=== PATIENT | male | born 1960 | race Caucasian/White ===

== ENCOUNTER → 2017-07-31 | Outpatient (CLI) | payer OTHER ==
--- NOTE | 2017-07-31 15:23 | US ---
EXAMINATION TYPE: US carotid duplex BILAT DATE OF EXAM: 07/31/2017 COMPARISON: US carotid November 11, 2010 CLINICAL HISTORY: R42 Dizziness. Pt having dizziness EXAM MEASUREMENTS: RIGHT: Peak Systolic Velocity (PSV) cm/sec ----- Right CCA: 88.6 ----- Right ICA: 89.7 ----- Right ECA: 112.1 ICA/CCA ratio: 1.0 RIGHT: End Diastole cm/sec ----- Right CCA: 22.6 ----- Right ICA: 22.6 ----- Right ECA: 12.4 LEFT: Peak Systolic Velocity (PSV) cm/sec ----- Left CCA: 86.9 ----- Left ICA: 87.5 ----- Left ECA: 109.5 ICA/CCA ratio: 1.0 LEFT: End Diastole cm/sec ----- Left CCA: 25.0 ----- Left ICA: 38.0 ----- Left ECA: 15.0 VERTEBRALS (direction of flow): Right Vertebral: Antegrade Left Vertebral: Antegrade Rhythm: Normal No significant stenosis seen Grayscale images show no significant focal plaque at carotid bulb level bilaterally. Velocity measure ments and ratios in visualized portion of both internal carotid arteries is within normal limits. Nor mal cephalad directed flow is seen in both vertebral arteries. IMPRESSION: No hemodynamically significant stenosis is seen in either internal carotid artery.
== END | disposition home or self-care (01) ==
LOC: RADUSWWP 14:05
PROVIDERS: ATTEND Psychiatry & Neurology Neurology
DX: R42 Dizziness and giddiness (principal)
CPT/HCPCS: 93880

== ENCOUNTER → 2017-08-28 | Outpatient (CLI) | payer OTHER ==
--- NOTE | 2017-08-28 21:20 | CONS ---
CONSULTATION REASON FOR CONSULTATION: Sleep apnea. PRIMARY CARE PHYSICIAN: Dr. Raygoza. HISTORY OF PRESENT ILLNESS: 57-year-old, morbidly obese, male patient with history of diabetes, hyperlipidemia, bronchial asthma and chronic back pain with degenerative arthritis. This patient has symptoms of insomnia. He has had some difficulty initiating and maintaining sleep. Sometimes takes him more than 1 hour to fall asleep and he wakes up frequently approximately every hour or hour and a half and his sleep is very fragmented. He goes to bed around midnight and gets out of bed around 7:00 am. Amongst factors that contribute to this patient's sleep fragmentation, is nocturia as the patient has to get up multiple times for urination and he is seeing a urologist in that regard. He grinds his teeth. He snores and he states that he quits breathing and he is quite restless and as he feels numbness and tingling and insects crawling on his feet. He sometimes sweats and gets panicky and he feels very anxious and that is another contributing factor for his poor sleep quality. His Mcdonald score is at 12. He has been tried on Ambien which made his restlessness worse and he ended up quitting and he is currently on trazodone 100 mg at bedtime which had no major impact on his sleep quality. For that reason, he is coming in for further advice. PAST MEDICAL HISTORY: Obesity, diabetes, hyperlipidemia, bronchial asthma, acne, chronic back pain and degenerative arthritis. PAST SURGICAL HISTORY: Includes reconstruction surgery of the TMJ due to an overbite and this was done many years back. Surgery for hammer toe on the left foot, right knee arthroscopy, left knee arthroscopy with replacement. DRUG ALLERGIES: Not known. OUTPATIENT MEDICATION LIST: Includes metformin 1 g twice a day, glipizide 10 mg 3 times a day. Zocor 40 mg p.o. daily, atenolol 50 mg p.o. daily, aspirin 81 mg p.o. daily, albuterol HFA on a p.r.n. basis. Symbicort 160/4.5, 2 puffs twice a day. Doxycycline for acne 100 mg twice a day. Clindamycin gel, vitamin D3 2000 units daily. Omeprazole 20 daily, hydrocodone 7.5/325 as needed. Trazodone 100 mg p.o. daily. SOCIAL HISTORY: The patient is a nonsmoker. No history of alcohol. No history of IV drugs. FAMILY HISTORY: Negative for sleep apnea. REVIEW OF SYSTEMS: 12-point review of system was done. Positive findings are mentioned above in the history of present illness. PHYSICAL EXAMINATION: BP is 120/83, pulse 100, respirations 16, temperature 98.0, saturation 94% on room air. Weight is 319, height is 6'3", neck size is 19 inches, BMI 38.8. GENERAL APPEARANCE: Obese, calm, comfortable. Head is atraumatic, normocephalic. Neck is short, there was significant crowding of posterior pharynx. There is no goiter or neck masses. LUNGS: Clear to auscultation. HEART: Sounds regular rate and rhythm. Normal S1, S2. No S3, S4. No murmurs. ABDOMEN: Obese, soft, nontender. No organomegaly. No direct tenderness, rebound or guarding. EXTREMITIES: Trace edema. There is no cyanosis or clubbing. IMPRESSION: 1. Chronic insomnia with multiple comorbidities affecting sleep quality including anxiety, nocturia/bladder hyperactivity, in addition to possible peripheral neuropathy and restless legs syndrome. Obstructive sleep apnea is definitely concentration knowing that the patient snores and has the typical anatomic features of obstructive sleep apnea with Mallampati class 4. Morbid obesity with a BMI of 38.8. He needs further investigation. 2. Diabetes. 3. Hyperlipidemia. 4. Bronchial asthma. 5. Chronic back pain. PLAN: 1. Proceed with a screening polysomnogram. 2. Weight loss. 3. Tight control of cardiovascular risk factors. 4. We will continue to follow. 5. Will proceed with a sleep study and offer treatment accordingly. MMODL / IJN: [id number] /
== END | disposition home or self-care (01) ==
LOC: SLEEP 15:35
PROVIDERS: ATTEND Internal Medicine Critical Care Medicine
DX: G47.33 Obstructive sleep apnea (adult) (pediatric) (principal); F51.04 Psychophysiologic insomnia; E66.01 Morbid (severe) obesity due to excess calories; Z68.38 Body mass index [BMI] 38.0-38.9, adult; E11.9 Type 2 diabetes mellitus without complications; E78.5 Hyperlipidemia, unspecified; M54.9 Dorsalgia, unspecified; G89.29 Other chronic pain; J45.909 Unspecified asthma, uncomplicated; Z79.899 Other long term (current) drug therapy; Z79.82 Long term (current) use of aspirin; Z79.891 Long term (current) use of opiate analgesic
CPT/HCPCS: 99211

== ENCOUNTER → 2018-01-23 | Outpatient (CLI) | payer OTHER ==
[2018-01-23 12:16] LABS: Blood Urea Nitrogen 12 mg/dL (9-20)
--- NOTE | 2018-01-23 13:16 | CT ---
EXAMINATION TYPE: CT brain w con DATE OF EXAM: 01/23/2018 COMPARISON: CT brain November 10, 2010 HISTORY: Headache, dizziness CT DLP: 1185.70 mGycm Automated exposure control for dose reduction was used. CONTRAST: CT scan of the head is performed with IV Contrast, patient injected with 100 ml mL of Isovue 300. FINDINGS: There is no abnormal enhancing mass or midline shift identified. The ventricles and sulci are within normal limits in size for patient's age not significantly changed from prior. The globes are intact bilaterally. There is mucosal thickening with near complete opacification of bilateral ethmoid sinuses. There is n ear complete opacification of left maxillary sinus. There is mild mucosal thickening in the right max illary sinus. There is mild mucosal thickening and small caliber left sphenoid sinus. There is mild m ucosal thickening with dependent opacification left frontal sinus. IMPRESSION: No suspicious enhancing intraparenchymal mass. Acute on chronic paranasal sinus disease is felt prese nt as detailed above.
--- NOTE | 2018-01-23 13:21 | CT ---
EXAMINATION TYPE: CT soft tissue neck w con DATE OF EXAM: 01/23/2018 12:57 PM COMPARISON: NONE HISTORY: Headache, dizziness per order. Neck pain for over 10 years with double vision also per patie nt. CT DLP: 746.70 mGycm Automated exposure control for dose reduction was used. CONTRAST: CT scan of the neck is performed following with IV Contrast, patient injected with 100 ml mL of Isovu e 300. Axial images are obtained, coronal and sagittal reformatted images are reviewed. FINDINGS: Airway: There is 4 mm nodule axial image 1 anterior right upper lobe. There is 13 x 3 mm scarlike [place] posterior lateral right upper lobe axial image 16. Parotid/submandibular glands: Submandibular glands are symmetric and lower limits of normal in size. . Carotid/Vascular Structures: There is left-sided arch with aberrant right brachiocephalic artery r unning posterior to esophagus which is normal variant. There are some prominent but subcentimeter adj acent anterior superior mediastinal lymph nodes, for reference lymph node measures 14 x 8 mm axial im age 14. Dominant right vertebral artery is seen. Osseous Structures: There is some spurring from the C4 vertebra. Other: There are some scattered prominent but subcentimeter lymph nodes throughout the neck bilateral ly. There is no suspicious greater than 1 cm neck adenopathy. There is near complete opacification of left maxillary sinus. There is complete opacification of visu alized portion of left ethmoid sinuses with some expansion felt present. No bony destruction is seen. Please refer to same day CT brain study. IMPRESSION: No suspicious finding is seen to account for patient's symptoms.
== END | disposition home or self-care (01) ==
LOC: RADCTMAIN 11:17
PROVIDERS: ATTEND Psychiatry & Neurology Neurology
DX: R51 Headache (principal); M54.2 Cervicalgia
CPT/HCPCS: 82565; 84520; 70491; 70460; 36415; Q9967 ×2

== ENCOUNTER → 2020-09-14 | Outpatient (CLI) | payer OTHER ==
--- NOTE | 2020-09-14 16:26 | MR ---
EXAMINATION TYPE: MR knee RT wo con DATE OF EXAM: 09/14/2020 COMPARISON: Outside right knee x-ray 1 week ago. HISTORY: Right knee pain, pain with locking and swelling for 10 years per patient. TECHNIQUE: Multiplanar, multisequence imaging of the right knee is performed without IV contrast. FINDINGS: MEDIAL MENISCUS: Oblique and horizontal increased signal posterior horn medial meniscus extends into the central body consistent with full-thickness tear this extends into the deeper portion of the ante rior horn. Abnormal meniscus noted coronal image 21 LATERAL MENISCUS: Anterior and posterior horns are intact without tear. CRUCIATE LIGAMENTS: The anterior and posterior cruciate ligaments are intact and unremarkable. COLLATERAL LIGAMENTS: The medial collateral ligament and lateral collateral ligament complex are inta ct and unremarkable. EXTENSOR MECHANISM: Visualized quadriceps and patellar tendons are intact. EFFUSION: Small suprapatellar joint effusion. POPLITEAL CYST: No popliteal/bryan cyst. TRICOMPARTMENT SPACES: [id number] tricompartment joint space loss with mild spurring. CARTILAGE: Some chondromalacia patella with thinning of articular cartilage along the inferior clinical informatics physician ior patellar pole. There is thinning of articular cartilage medial tibial femoral compartment. BONE MARROW SIGNAL: Small focus of osseous contusion and/or abnormal bone marrow signal intensity wit h diminished T1 and increased T2 signal involving the medial aspect of the medial tibial plateau. OTHER: No additional significant abnormality is appreciated. IMPRESSION: 1. Complex full-thickness tear medial meniscus through the central body and posterior horn with some extension into the deeper aspect of the anterior. 2. Fairly moderate tricompartment degenerative changes greatest patellofemoral and medial tibiofemora l compartments. Small area of abnormal bone marrow edema medial aspect of the medial tibial plateau n oted.
== END | disposition home or self-care (01) ==
LOC: RADMRIMAIN 15:22
PROVIDERS: ATTEND Orthopaedic Surgery
DX: S83.241A Other tear of medial meniscus, current injury, right knee, initial encounter (principal); M17.11 Unilateral primary osteoarthritis, right knee

== ENCOUNTER → 2020-10-21 | Outpatient (CLI) | payer OTHER ==
[2020-10-21 19:13] LABS: Basophils # (A) 0.08 X 10*3/uL (0.00-0.10); Basophils % (A) 0.9 %; Eosinophils % (A) 7.5 %; HCT 45.1 % (39.6-50.0); HGB 14.6 g/dL (13.0-17.0); Lymphocytes # (A) 2.61 X 10*3/uL (0.90-5.00); MCH 28.9 pg (27.0-32.0); MCHC 32.4 g/dL (32.0-37.0); MCV 89.3 fL (80.0-97.0); Mean Platelet Volume 10.1 fL (9.5-12.2); Monocytes # (A) 0.71 X 10*3/uL (0.20-1.00); Monocytes % (A) 7.6 %; Neutrophils # (A) 5.19 X 10*3/uL (1.80-7.70); Neutrophils % (A) 55.6 %; Platelet Count 260 X 10*3/uL (140-440); RBC 5.05 X 10*6/uL (4.40-5.60); RDW 12.3 % (11.5-14.5); WBC 9.33 X 10*3/uL (4.50-10.00)
[2020-10-21 22:51] LABS: Anion Gap 12.8 mmol/L (4.00-12.00); Carbon Dioxide 25.2 mmol/L (21.6-31.8); Potassium 4.5 mmol/L (3.5-5.5)
== END | disposition home or self-care (01) ==
LOC: LABWHC1 12:55
PROVIDERS: ATTEND Orthopaedic Surgery
DX: Z01.812 Encounter for preprocedural laboratory examination (principal); M23.91 Unspecified internal derangement of right knee
CPT/HCPCS: 36415; 80051; 85025; 93005

== ENCOUNTER 2020-10-28 12:07 | Day surgery (SDC) | payer OTHER ==
[2020-10-25 14:49] VITALS: BMI 40.1
--- NOTE | 2020-10-27 16:52 | HP ---
HISTORY AND PHYSICAL DATE OF SURGERY: 10/28/2020 Karl Ramos is a 60-year-old gentleman seen with progressive right knee pain. We discussed options for treatment. He elected to proceed with arthroscopy. Consent was obtained. PAST MEDICAL HISTORY: Hypertension, insulin-dependent diabetes, hyperlipidemia. PAST SURGICAL HISTORY: Foot surgery, total knee arthroplasty, right knee arthroscopy. DAILY MEDICATIONS: Albuterol, atenolol, glipizide, Lantus insulin, metformin, omeprazole, simvastatin. ALLERGIES: LYRICA. SOCIAL HISTORY: He denies current tobacco use. PHYSICAL EVALUATION OF THE RIGHT KNEE: Range of motion is zero to 130. Mild effusion. Tenderness, medial joint line. Positive medial Marla's. Ligaments are stable. Hip rotation is without pain. Distal neurovascular exam is intact. RADIOGRAPHS: Radiographs of the right knee revealed mild osteoarthritis. Right knee MRI revealed a complex medial meniscal tear. IMPRESSION: 1. Internal derangement of right knee with medial meniscal tear. 2. Hyperlipidemia. 3. Hypertension. 4. Pnn-mzocmjh-uayukkoxs diabetes. PLAN: Right knee arthroscopy with partial meniscectomy and debridement. MMODL / IJN: [id number] /
[~2020-10-28 12:07] MED LIST: DEXAMETHASONE SOD PHOSPHATE 4 MG/ML 1 ML VIAL IV ONE; HYDROmorphone 0.5 MG/0.5 ML SYRINGE IVP PRN; LACTATED RINGERS 1,000 ML IV SCH; ONDANSETRON 4 MG/2 ML VIAL IVP ONE; ceFAZolin 3 GM in SODIUM CHLORIDE 0.9% 100 ML IVPB PRN
[2020-10-28 12:39] LABS: Glucose,Whole Blood 122 mg/dL (75-99)
[2020-10-28] MEDS ORDERED: MIDAZOLAM 2 MG/2 ML VIAL IV ONE (13:12)
[2020-10-28] MEDS ORDERED: BUPIVACAINE (PF) 0.25% 30 ML VIAL INTRAARTIC ONE (14:39)
[2020-10-28] MEDS ORDERED: LACTATED RINGERS 1,000 ML IV ONE (14:56)
--- NOTE | 2020-10-28 15:14 | P.OP ---
Date of Procedure: 10/28/20 Preoperative Diagnosis: Internal derangement right knee Postoperative Diagnosis: 1. Medial meniscal tear right knee 2. Reactive synovitis medial, lateral and suprapatellar compartments right knee Procedure(s) Performed: 1. Arthroscopic partial medial meniscectomy right knee 2. Arthroscopic partial synovectomy medial, lateral and suprapatellar compartments right knee Anesthesia: LBA, local Surgeon: Rosalio Macdonald Estimated Blood Loss (ml): 7 Pathology: none sent Condition: stable Disposition: PACU Indications for Procedure: 60-year-old gentleman seen with progressive right knee pain. After treatment options were discussed, he elected to proceed with arthroscopy. Operative Findings: See description of procedure Description of Procedure: Patient was taken to the operative suite. Patient underwent a general an esthetic by the department of anesthesia. Patient was given preoperative antibiotics. The right lower extremity was placed in a well-padded arthroscopic leg siegel. The right leg was prepped and draped in the normal sterile orthopedic fashion. A lateral parapatellar and suprapatellar incision was made. Trochars were inserted. Arthroscopy was initiated. Suprapatellar pouch revealed diffuse thick reactive synovitis. The patellofemoral joint appeared to articulate congruently. There was grade 1 chondromalacia of the patellofemoral joint with no osteochondral tears present. The scope was guided into the medial gutter. No loose bodies or plica were identified The scope was then guided into the medial compartment. A medial parapatellar incision was made. Trocar inserted followed by probe. There was a complex tear involving the posterior horn medial meniscus. There were grade 1/2 chondromalacia changes of the medial compartment with no osteochondral tears present. There was thick reactive synovitis anteriorly. I performed a partial medial meniscectomy getting down to stable meniscal tissue. I performed a partial synovectomy decompressing the thick reactive synovitis anteriorly. The residual meniscus was probed and found to be stable. There was good decompression of the synovitis. Scope and probe were then guided into the intercondylar notch. Cruciates were identified, probed and found to be stable. The scope and probe were then guided into lateral compartment. Lateral meniscus was probed and was found to be stable. There was some thick reactive synovitis anteriorly. There was no significant chondromalacia present. I introduced a motorized shaver and performed a partial synovectomy. The shaver was removed. There was good decompression of the synov itis. The scope was in guided back into the suprapatellar compartment. I introduced a motorized shaver into the suprapatellar compartment. I debrided some piecemeal fragments of meniscus I encountered. I performed a partial synovectomy decompressing the reactive synovitis. The shaver was removed. There was good decompression of the synovitis. I took one more look around the entire knee, no residual debris. Instruments were now removed from the joint. The joint was infiltrated with .25% Marcaine. Steri-Strips were applied to the portal sites. Sterile dressings were applied. The patient was placed into a MARIO hose. No tourniquet was utilized. The patient was awakened, transferred to a bed and taken to recovery stable satisfactory condition.
[2020-10-28] MEDS ORDERED: PROPOFOL 10 MG/ML 20 ML VIAL IV ONE (15:23)
[2020-10-28] MEDS ORDERED: MIDAZOLAM 2 MG/2 ML VIAL ONE (15:23)
[2020-10-28] MEDS ORDERED: fentaNYL (PF) 50 MCG/ML 2 ML AMP ONE (15:23)
[2020-10-28] MEDS ORDERED: LIDOCAINE 1% INJ 10MG/ML (20 ML MDV) ONE (15:23)
[2020-10-28] MEDS ORDERED: HYDROmorphone (PF) 1 MG/ML ONE (15:23)
[2020-10-28] MEDS ORDERED: SUCCINYLCHOLINE CHLORIDE VIAL 200 MG/10 ML VIAL IV ONE (15:23)
[2020-10-28 15:27] VITALS: TEMP 97.3
[2020-10-28 15:33] VITALS: RESP 16
[2020-10-28 15:43] LABS: Glucose,Whole Blood 97 mg/dL (75-99)
[2020-10-28 16:15] VITALS: BP 154/87; PULSE 78
== END 2020-10-28 17:11 | disposition home or self-care (01) ==
LOC: OR 12:07
PROVIDERS: ATTEND Orthopaedic Surgery
DX: M23.221 Derangement of posterior horn of medial meniscus due to old tear or injury, right knee (principal); M94.261 Chondromalacia, right knee; M65.861 Other synovitis and tenosynovitis, right lower leg; I10 Essential (primary) hypertension; E78.5 Hyperlipidemia, unspecified; G47.33 Obstructive sleep apnea (adult) (pediatric); J44.9 Chronic obstructive pulmonary disease, unspecified; E11.9 Type 2 diabetes mellitus without complications; G43.909 Migraine, unspecified, not intractable, without status migrainosus; K21.9 Gastro-esophageal reflux disease without esophagitis; E66.9 Obesity, unspecified; Z99.89 Dependence on other enabling machines and devices; Z79.4 Long term (current) use of insulin; Z79.899 Other long term (current) drug therapy; Z98.890 Other specified postprocedural states; Z88.8 Allergy status to other drugs, medicaments and biological substances
CPT/HCPCS: 29881; J2250; J0330; J1100; J0690; J2405; J2001; J3010; J1170; J2704

== ENCOUNTER → 2021-04-20 | Outpatient (CLI) | payer OTHER ==
[2021-04-20 14:01] LABS: Basophils # (A) 0.1 k/uL (0-0.2); Basophils % (A) 1 %; Eosinophils # (A) 0.6 k/uL (0-0.7); Eosinophils % (A) 8 %; HCT 44.3 % (39.0-53.0); HGB 15.3 gm/dL (13.0-17.5); Lymphocytes % (A) 28 %; MCH 31.2 pg (25.0-35.0); MCHC 34.6 g/dL (31.0-37.0); MCV 90.4 fL (80.0-100.0); Mean Platelet Volume 7.5; Monocytes # (A) 0.4 k/uL (0-1.0); Monocytes % (A) 5 %; Neutrophils # (A) 3.8 k/uL (1.3-7.7); Neutrophils % (A) 55 %; Platelet Count 209 k/uL (150-450); RDW 12.9 % (11.5-15.5); WBC 6.9 k/uL (3.8-10.6)
[2021-04-20 14:10] LABS: Prothrombin Time 10.3 sec (9.0-12.0)
[2021-04-20 14:18] LABS: Potassium 5.2 mmol/L (3.5-5.1)
== END | disposition home or self-care (01) ==
LOC: LABPAT 11:49
PROVIDERS: ATTEND Orthopaedic Surgery
DX: Z01.812 Encounter for preprocedural laboratory examination (principal); M17.11 Unilateral primary osteoarthritis, right knee
CPT/HCPCS: 36415; 80051; 85025; 85610; 87070

== ENCOUNTER 2021-05-09 05:37 | Observation (INO) | payer OTHER ==
[2021-04-21 15:07] VITALS: BMI 39.5
--- NOTE | 2021-05-08 13:36 | HP ---
HISTORY AND PHYSICAL HISTORY: Karl Ramos is a 60-year-old gentleman seen with symptomatic right knee osteoarthritis. We discussed options for treatment. He elected to proceed with right total knee arthroplasty. Consent regarding the procedure was obtained. PAST MEDICAL HISTORY: Hypertension, hyperlipidemia, insulin-dependent diabetes. PAST SURGICAL HISTORY: Left total knee arthroplasty, right knee arthroscopy, left foot surgery. MEDICATIONS: Albuterol, atenolol, glipizide, Lantus insulin, metformin, [place], simvastatin. ALLERGIES: Lyrica. SOCIAL HISTORY: Denies tobacco use. PHYSICAL EXAMINATION: Evaluation of right knee range of motion 0-115. Mild effusion. Tenderness medial joint line. Crepitus medial patellofemoral compartments on range of motion. Pain with patellofemoral compression. Ligaments stable. Hip rotation without pain. Distal neurovascular exam is intact. RADIOGRAPHS: Right knee radiographs reveal severe osteoarthritic changes. IMPRESSION: 1. Right knee osteoarthritis. 2. Hypertension. 3. Hyperlipidemia. 4. Insulin-dependent diabetes. PLAN: Right total knee arthroplasty. MMODL / GLENISN: [id number] /
[~2021-05-09 05:37] MED LIST changes: +ACETAMINOPHEN TAB 500 MG TAB PO PRN; -DEXAMETHASONE SOD PHOSPHATE 4 MG/ML 1 ML VIAL IV ONE; -HYDROmorphone 0.5 MG/0.5 ML SYRINGE IVP PRN; -LACTATED RINGERS 1,000 ML IV SCH; +MELOXICAM 7.5 MG TAB PO PRN; -ONDANSETRON 4 MG/2 ML VIAL IVP ONE; +ROPIVACAINE/EPI/CLONIDINE/KET 50 ML SYRINGE MISCELLANE PRN; +TRANEXAMIC ACID 1,000 MG in SODIUM CHLORIDE 0.9% 100 ML IVPB PRN
[2021-05-09] MEDS ORDERED: LIDOCAINE 1% (10MG/ML) FOR IV START INTRADERMA PRN (05:49)
[2021-05-09] MEDS: LACTATED RINGERS 1,000 ML IV SCH ×4 (06:37→20:39)
[2021-05-09 06:38] LABS: Glucose,Whole Blood 103 mg/dL (75-99)
[2021-05-09] MEDS: ONDANSETRON 4 MG/2 ML VIAL IVP ONE ×2 (06:55→20:39)
[2021-05-09] MEDS ORDERED: MIDAZOLAM 2 MG/2 ML VIAL IVP ONE ×2 (07:02→07:18)
[2021-05-09] MEDS ORDERED: diphenhydrAMINE 50 MG/ML 1 ML VIAL ONE (07:28)
[2021-05-09] MEDS ORDERED: PROPOFOL 10 MG/ML 20 ML VIAL IV ONE (07:28)
[2021-05-09] MEDS ORDERED: MIDAZOLAM 2 MG/2 ML VIAL ONE (07:28)
[2021-05-09] MEDS ORDERED: SODIUM CHLORIDE 0.9% (PF) 10 ML VIAL ONE (07:28)
[2021-05-09] MEDS ORDERED: ROPIVACAINE 5 MG/ML 30 ML VIAL ONE (07:28)
[2021-05-09] MEDS ORDERED: SODIUM CHLORIDE 0.9% 100 ML BAG ONE (07:28)
[2021-05-09] MEDS ORDERED: TRANEXAMIC ACID 1,000 MG/10 ML VIAL ONE (07:28)
[2021-05-09] MEDS ORDERED: PHENYLEPHRINE-0.9% NACL SYG 1,000 MCG/10 ML SYRINGE ONE (07:28)
[2021-05-09] MEDS ORDERED: fentaNYL (PF) 50 MCG/ML 2 ML AMP ONE (07:28)
[2021-05-09] MEDS ORDERED: KETAMINE 10 MG/ML 20 ML VIAL ONE (07:28)
[2021-05-09] MEDS ORDERED: ceFAZolin 1,000 MG in SODIUM CHLORIDE 0.9% 1,000 ML IRRIGATION ONE (07:34)
[2021-05-09] MEDS ORDERED: ACETAMINOPHEN TAB 325 MG TAB PO PRN (08:27)
[2021-05-09] MEDS ORDERED: ONDANSETRON 4 MG/2 ML VIAL IVP PRN (08:27)
[2021-05-09] MEDS ORDERED: MAGNESIUM HYDROXIDE 2,400 MG/10 ML CUP PO PRN (08:27)
[2021-05-09] MEDS ORDERED: HYDROcodone/APAP 7.5-325MG 1 EACH TAB PO PRN (08:27)
[2021-05-09] MEDS ORDERED: HYDROmorphone 0.5 MG/0.5 ML SYRINGE IVP PRN (08:27)
[2021-05-09] MEDS ORDERED: NALOXONE 0.4 MG/ML 1 ML VIAL IV PRN ×2 (08:27→09:15)
[2021-05-09] MEDS ORDERED: LACTATED RINGERS 1,000 ML IV ONE ×2 (08:31→14:26)
--- NOTE | 2021-05-09 09:15 | P.OP ---
Date of Procedure: 05/09/21 Preoperative Diagnosis: Right knee osteoarthritis Postoperative Diagnosis: Right knee osteoarthritis Procedure(s) Performed: Right total knee arthroplasty Implants: 1. Depuy attune size 8 right cruciate retaining cemented femur 2. Depuy attune size 8 fixed bearing cemented tibial baseplate 3. Depuy attune size 8 fixed bearing cruciate retaining 8 millimeter polyethylene tibial insert 4. Depuy attune 41 mm all polyethylene cemented patellla Anesthesia: regional (Adductor canal, Ipack block), spinal Surgeon: Rosalio Macdonald Director Of Research And Development #1: Reese Mercado Estimated Blood Loss (ml): 45 Pathology: other (Bone) Condition: stable Disposition: PACU Indications for Procedure: 60-year-old gentleman seen with symptomatic right knee osteoarthritis. After treatment options were discussed, he elected to proceed with total knee ar throplasty. Operative Findings: See description of procedure Description of Procedure: Patient was taken to the operative suite after having an adductor canal catheter placed by the department of anesthesia as well as and Ipack block for postoperative pain management. Patient underwent a spinal anesthetic by the department of anesthesia. Patient was given preoperative IV intake antibiotics and TXA. A well-padded tourniquet was placed about the right lower extremity. The lower extremity was then prepped and draped in the normal sterile orthopedic fashion. The extremity was elevated, a tourniquet was insufflated to 300. A standard anterior incision was made sharply through skin. Dissection was taken down through the subcutaneous soft tissues down to the extensor mechanism. A medial arthrotomy was performed, patella was everted and knee was flexed. There was advanced osteoarthritis noted. I introduced my distal intramedullary f emoral drill. I then introduced the distal femoral cutting jig. Logan WATSON secured the cutting jig with 2 pins. I held retractors in position while Reese WATSON performed the distal femoral resection through the guide area we now removed her distal femoral cutting guide. We now placed our 4-in-1 femoral cutting block and positioned and it was secured with 2 pins by Reese WATSON while I held the block in position. The distal femoral finishing was now completed. A proximal tibial cutting guide was positioned. I held the guide in the appropriate position with both hands while Reese WATSON inserted stabilizing pins into the guide. Proximal tibial cut was made. We now placed a trial femoral component into position, along with an appropriate size tibial tray and insert. We now took the knee through range of motion and had full extension good flexion and good overall soft tissue balance noted. The patella was everted and stabilized with 2 towel clips held by Reese WATSON while I performed a flush with patellar quad tendon utilizing a fresh sawblade. We templated the patella, appropriate drill holes were made. An appropriate trial patella was positioned, knee was taken through full range of motion with the patella tracking very nicely. The trial patella was removed. Drill holes were made through the femoral component. All trial components were removed after m arking off the appropriate rotation of the tibia. Retractors were now positioned along the proximal tibia. An appropriate keel punch was made with the appropriate size tibial guide by myself while Reese WATSON assisted by holding retractors. At this point appropriate size implants were chosen and opened. The joint was irrigated copiously with pulse lavage mechanical irrigation. The posterior capsule was infiltrated with local analgesic. The wound was irrigated with pulse lavage mechanical irrigation. We mixed antibiotic methylmethacrylate. We placed the knee into flexion. We placed multiple retractors assisted by Reese WATSON to expose the proximal tibia. Once the methyl methacrylate was ready, the tibial component was cemented into place removing any excess methylmethacrylate form by both myself and Reese WATSON. The femoral component was cemented into place removing the removing any excess methylmethacrylate performed by both myself and Reese WATSON. We then inserted the appropriate size polyethylene tibial insert. We made sure that it was locked into position. We took the knee into full extension, and then back in a flexion making sure we had removed any excess methylmethacrylate. The patellar component was then cemented down and secured with clamp. Excess methylmethacrylate removed. We kept the knee in full extension, patellar clamp in position until methylmethacrylate had hardened. Once it had hardened the patellar clamp was removed. The knee was taken through full range of motion. The patella tracked nicely. There was good soft tissue balancing. The tourniquet was now released. Additional hemostasis was achieved via electrocautery. A second gram of TXA was given. The wound again was irrigated with pulse lavage mechanical irrigation. The superficial soft tissues were infiltrated local analgesic. The extensor mechanism was repaired with Vicryl. We checked the repair with range of motion and it was stable. The subcutaneous soft tissues were repaired with Vicryl in layers. The skin was approximated with pernio/Dermabond. Sterile dressings were applied followed by loose web roll and Rafiq bandage. The patient was transferred to a bed, and taken to recovery in stable and satisfactory condition. Reese WATSON assisted with this complex procedure.
[2021-05-09] MEDS ORDERED: ROPIVACAINE 0.2%-NS ON-Q PUMP 1,090 MG, EMPTY PAIN BALL 1 EACH MISCELLANE PRN (09:47)
--- NOTE | 2021-05-09 10:05 | XR ---
EXAMINATION TYPE: XR knee limited RT DATE OF EXAM: 05/09/2021 COMPARISON: NONE HISTORY: 60-year-old male evaluation for postoperative abnormality in alignment TECHNIQUE: 2 views FINDINGS: Images show placement of right total knee arthroplasty. Both distal femoral and proximal ti bial components of the prosthesis appear well seated without periprosthetic fracture. Alignment gross ly anatomic. Anterior soft tissue swelling with soft tissue air as well as intra-articular air and quentin int effusion compatible with recent operation. IMPRESSION: Uncomplicated postoperative appearance right total knee arthroplasty.
[2021-05-09 10:10] LABS: Glucose,Whole Blood 70 mg/dL (75-99)
[2021-05-09] MEDS: HYDROmorphone 0.5 MG/0.5 ML SYRINGE IVP PRN ×4 (10:23→12:00)
--- NOTE | 2021-05-09 13:51 | P.ANPRN ---
Procedure Note - Anesthesia - Nerve Block Performed Right Adductor Canal Time Out Performed: Yes (:) Date of Procedure: 05/09/21 Procedure Start Time: Procedure Stop Time: Location of Patient: PreOp Indication: Acute Post-Operative Pain, Requested by Surgeon (Dr Manning) Sedation Type: Sedate with meaningful contact maintained Preparation: Sterile Prep, Sterile Dressing Position: Supine Catheter: Indwelling Needle Types: Pajunk Needle Gauge: 21 Ultrasound used to visualize needle placement: Yes Ultrasound used to observe medication spread: Yes Injectate: 0.5% Ropivacaine (see comment for volume) (15cc) Blood Aspirated: No Pain Paresthesia on Injection Noted: No Resistance on Injection: Normal Image Stored and Saved: Yes Events: Uneventful and Well Tolerated
--- NOTE | 2021-05-09 13:52 | P.ANPRN ---
Procedure Note - Anesthesia - Nerve Block Performed Right iPack Time Out Performed: Yes Date of Procedure: 05/09/21 Procedure Start Time: 07:14 Procedure Stop Time: :25 Location of Patient: PreOp Indication: Acute Post-Operative Pain, Requested by Surgeon (Dr Macdonald) Sedation Type: Sedate with meaningful contact maintained Preparation: Sterile Prep Position: Supine Catheter: None Needle Types: Pajunk Needle Gauge: 21 Ultrasound used to visualize needle placement: Yes Ultrasound used to observe medication spread: Yes Injectate: 0.5% Ropivacaine (see comment for volume) (15cc + 5cc PFNormal saline) Blood Aspirated: No Pain Paresthesia on Injection Noted: No Resistance on Injection: Normal Image Stored and Saved: Yes Events: Uneventful and Well Tolerated
[2021-05-09] MEDS: HYDROcodone/APAP 5-325MG 1 EACH TAB PO PRN ×2 (14:20→20:37)
[2021-05-09] MEDS ORDERED: PANTOPRAZOLE 40 MG TABLET PO PRN (15:25)
[2021-05-09] MEDS ORDERED: ALBUTEROL NEBULIZED 2.5 MG/3 ML INHALATION PRN (15:25)
[2021-05-09] MEDS ORDERED: ceFAZolin 3 GM in SODIUM CHLORIDE 0.9% 100 ML IVPB SCH (16:00)
[2021-05-09] MEDS: ceFAZolin 3 GM in SODIUM CHLORIDE 0.9% 100 ML IVPB SCH (16:29)
[2021-05-09] MEDS: GABAPENTIN 400 MG CAP PO SCH ×2 (16:29→21:29)
[2021-05-09] MEDS: HYDROmorphone 1 MG/ML 1 ML SYRINGE IVP PRN ×3 (16:30→22:43)
[2021-05-09 16:55] LABS: Glucose,Whole Blood 134 mg/dL (75-99)
--- NOTE | 2021-05-09 17:04 | P.CONS ---
History of Present Illness - Reason for Consult Consult date: 05/09/21 - History of Present Illness History of Presenting Illness: Patient is a 60-year-old male with a past medical history hypertension, hyperlipidemia, sinus tachycardia, COPD not on home oxygen dependent, insulin- dependent diabetes mellitus type 2, positional vertigo, diabetic neuropathy, and obstructive sleep apnea CPAP dependent nightly. Patient currently admitted under orthopedic surgery team status post right total knee arthroplasty. Surgical procedure completed by Dr. Macdonald. We have been consulted for continued medical management. Upon physical examination, patient reports postsurgical pain is currently controlled. He does report a feeling of tightness otherwise reports controlled with pain medicine previously administered. Patient reports tolerating oral intake and denies having any postoperative nausea or vomiting. Patient denies any history of DVTs or PEs. He denies having any headache, lightheadedness, dizziness, chest pain, palpitations, shortness of breath, abdominal pain, nausea, vomiting, or experiencing any numbness/tingling sensations. Review of systems: Pertinent positives and negatives as discussed in HPI, a complete review of systems was performed and all other systems are negative. Physical exam: Vital signs reviewed and stable. General: Nontoxic, no distress and appears stated age. Derm: Skin warm and dry, normal coloration for ethnicity. Head: Atraumatic, normocephalic and symmetric. Eyes: EOMs intact, no lid lag, and anicteric sclera Mouth: no lip lesions, mucus membranes moist Cardiovascular: regular rate and rhythm with normal S1S2, no murmur, positive posterior tibial pulses bilaterally, and cap refill < 2 seconds. Lungs: Respirations even, regular, and unlabored on room air. Lungs CTA bilaterally, no rhonchi, no rales, no wheezing, and no accessory muscle usage. Abdominal: soft, nontender to palpation, no guarding, no appreciable organomegaly Ext: ROM intact. No gross muscle atrophy, no edema, no contractures. Post operative dressings/splint to right lower extremity. Ice pack in place. Neuro: Speech clear, face symmetrical and CN II-XII grossly intact with no noted focal neuro deficits Psych: Alert and oriented to person, place, time, and situation. Appropriate and pleasant affect. Assessment and Plan of Care: Status post right total knee arthroplasty -Surgical procedure completed by Dr. Macdonald -Pain management, weightbearing, PT/OT, and DVT prophylaxis per primary admitting orthopedic team. Hypertension, -Monitor vital signs and continue daily medication regimen. Hyperlipidemia, Continue daily medication regimen with atorvastatin 20 mg nightly. Sinus tachycardia, Continue daily medication management with atenolol. COPD not on home oxygen dependent -Oxygenation to be provided as needed to maintain SpO2 equal to or greater than 92%, patient currently on room air. -Encourage use of incentive spirometry. Insulin-dependent diabetes mellitus type 2 -Glycemic protocol with NovoLog sliding scale and Levemir 36 units nightly Diabetic neuropathy -Continue daily medication regimen with Neurontin 1200 mg 3 times daily Obstructive sleep apnea CPAP dependent nightly -Continue home CPAP nightly Thank you for allowing us to participate in the care of this pleasant patient. Do not hesitate to contact us with questions. Someone can be reached from the [facility] hospitalist group all hours of the day at [phone] or via [employer]. Past Medical History Past Medical History: Asthma, COPD, Diabetes Mellitus, GERD/Reflux, Hyperlipidemia, Osteoarthritis (OA), Sleep Apnea/CPAP/BIPAP Additional Past Medical History / Comment(s): hx migraines, states hx sinus tachycardia., back pain, vertigo., pain right knee, Uses C-Pap machine. History of Any Multi-Drug Resistant Organisms: None Reported Past Surgical History: Joint Replacement, Orthopedic Surgery Additional Past Surgical History / Comment(s): ARTHROSCOPY MAE KNEES APPROX 4 TIMES EACH., HAMMER TOE LEFT SMALL TOE, TMJ RECONSTRUCTION, TOTAL LEFT KNEE X2. Past Anesthesia/Blood Transfusion Reactions: Family History of Problems w/ Anesthesia, Motion Sickness Additional Past Anesthesia/Blood Transfusion Reaction / Comm: SISTER HAS DIFFICULTY WAKING UP. Past Psychological History: Anxiety Smoking Status: Vaper Past Alcohol Use History: Rare Additional Past Alcohol Use History / Comment(s): SMOKED 1-2 YEARS IN . ( IN HIS 20'S) Past Drug Use History: None Reported Additional Drug Use History / Comment(s): vapes THC - Past Family History Mother Family Medical History: Cancer Additional Family Medical History / Comment(s): COLON CANCER WITH METS. Sister(s) Family Medical History: Cancer Additional Family Medical History / Comment(s): BREAST CANCER Medications and Allergies Home Medications Medication Instructions Recorded Confirmed Type Albuterol Inhaler (Mhu) [Ventolin 1 - 2 puff INHALATION Q6HR PRN 12/28/14 05/09/21 History Inhaler] Aspirin 81 mg PO DAILY 12/28/14 05/09/21 History Insulin Glargine [Lantus] 60 unit SQ QAM 12/28/14 05/09/21 History glipiZIDE [Glucotrol] 10 mg PO DAILY 12/28/14 05/09/21 History metFORMIN HCL [Glucophage] 1,000 mg PO BID 12/28/14 05/09/21 History Simvastatin [Zocor] 40 mg PO HS 09/07/16 05/09/21 History atenoloL [Tenormin] 50 mg PO DAILY 09/07/16 05/09/21 History traZODone HCL 150 mg PO HS 09/07/16 05/09/21 History Gabapentin [Gralise] 1,200 mg PO TID 09/24/19 05/09/21 History Omeprazole 20 mg PO DAILY PRN 09/24/19 05/09/21 History Cholecalciferol [Vitamin D3 (25 50 mcg PO DAILY 10/25/20 05/09/21 History Mcg = 1000 Iu)] Clindamycin Gel [Clindamycin 1 applic TOPICAL BID PRN 10/25/20 05/09/21 History Phosphate 1% Gel] Doxycycline [Vibramycin] 100 mg PO BID 10/25/20 05/09/21 History Insulin Glargine [Lantus] 36 unit SQ HS 10/25/20 05/09/21 History Budesonide-Formot 160-4.5 Mcg 2 puff INHALATION BID 04/21/21 05/09/21 History [Symbicort 160-4.5 Mcg Inhaler] HYDROcodone/APAP 7.5-325MG [[place] 1 tab PO TID PRN 04/21/21 04/21/21 History 7.5-325] Naproxen Sodium [Aleve] 220 mg PO DIRECTED PRN 04/21/21 05/09/21 History Cetirizine HCl [Zyrtec] 10 mg PO DAILY 05/02/21 05/09/21 History Dulaglutide [Trulicity] 0.75 mg SQ MO 05/02/21 05/09/21 History Allergies Allergy/AdvReac Type Severity Reaction Status Date / Time pregabalin [From Lyrica] Allergy Unknown Depression. Verified 05/09/21 06:11 Physical Exam Vitals: Vital Signs Temp Pulse Pulse Resp BP BP Pulse Ox 05/09/21 13:30 63 18 105/73 96 05/09/21 12:30 61 16 122/77 97 05/09/21 12:00 62 16 107/68 97 05/09/21 11:30 61 16 115/70 100 05/09/21 11:00 60 16 114/70 100 05/09/21 10:30 67 17 113/68 100 05/09/21 10:15 67 16 106/67 99 05/09/21 10:00 65 16 109/65 98 05/09/21 09:45 68 16 106/67 97 05/09/21 09:28 96.9 F L 73 14 99/61 95 05/09/21 07:25 73 18 141/77 97 05/09/21 06:20 98.3 F 77 20 146/78 97 Intake and Output 05/09/21 05/09/21 05/09/21 06:59 14:59 22:59 Intake Total 2576 Output Total 45 Balance 2531 Intake: IV 2576 Output: Estimated Blood Loss 45 Other: Weight 145.5 kg 145.5 kg Results CBC & Chem 7: 05/09/21 06:39 Labs: Abnormal Lab Results - Last 24 Hours (Table) 05/09/21 05/09/21 Range/Units 06:34 10:08 POC Glucose (mg/dL) 103 H 70 L (75-99) mg/dL
[2021-05-09] MEDS: INSULIN ASPART (NovoLOG) 100 UNIT/ML VIAL SQ SCH (17:32)
[2021-05-09] MEDS: SYMBICORT 160-4.5 MCG INHALER INHALATION SCH (20:01)
[2021-05-09] MEDS ORDERED: SENNOSIDES-DOCUSATE SODIUM 1 EACH TAB PO SCH (21:00)
[2021-05-09] MEDS ORDERED: traZODone HCL 50 MG TAB PO SCH (21:00)
[2021-05-09] MEDS ORDERED: ATORVASTATIN 20 MG TAB PO SCH (21:00)
[2021-05-09] MEDS ORDERED: INSULIN DETEMIR (LEVEMIR) 100 UNIT/ML SYR SQ SCH (21:00)
[2021-05-09 21:15] LABS: Glucose,Whole Blood 146 mg/dL (75-99)
[2021-05-10] MEDS: ceFAZolin 3 GM in SODIUM CHLORIDE 0.9% 100 ML IVPB SCH (00:10)
[2021-05-10] MEDS: HYDROmorphone 1 MG/ML 1 ML SYRINGE IVP PRN (03:07)
[2021-05-10] MEDS: HYDROcodone/APAP 5-325MG 1 EACH TAB PO PRN ×2 (06:05→12:10)
[2021-05-10 07:00] LABS: Glucose,Whole Blood 146 mg/dL (75-99)
[2021-05-10] MEDS: GABAPENTIN 400 MG CAP PO SCH (08:30)
[2021-05-10] MEDS: INSULIN ASPART (NovoLOG) 100 UNIT/ML VIAL SQ SCH ×2 (08:31→12:10)
[2021-05-10] MEDS ORDERED: INSULIN DETEMIR (LEVEMIR) 100 UNIT/ML SYR SQ SCH (09:00)
[2021-05-10] MEDS ORDERED: MELOXICAM 7.5 MG TAB PO SCH (09:00)
[2021-05-10] MEDS ORDERED: LORATADINE 10 MG TAB PO SCH (09:00)
[2021-05-10] MEDS ORDERED: CHOLECALCIFEROL 25 MCG (1000 IU) TABLET PO SCH (09:00)
[2021-05-10] MEDS ORDERED: atenoloL 50 MG TAB PO SCH (09:00)
[2021-05-10] MEDS ORDERED: ENOXAPARIN 40 MG/0.4 ML SYRINGE SQ SCH (09:00)
[2021-05-10] MEDS: SYMBICORT 160-4.5 MCG INHALER INHALATION SCH (09:02)
[2021-05-10 09:27] LABS: Basophils # (A) 0.07 X 10*3/uL (0.00-0.10); Basophils % (A) 0.9 %; Eosinophils # (A) 0.57 X 10*3/uL (0.04-0.35); Eosinophils % (A) 7.1 %; HCT 41.8 % (39.6-50.0); HGB 13.3 g/dL (13.0-17.0); Lymphocytes # (A) 1.74 X 10*3/uL (0.90-5.00); Lymphocytes % (A) 21.8 %; MCH 29.2 pg (27.0-32.0); MCHC 31.8 g/dL (32.0-37.0); MCV 91.7 fL (80.0-97.0); Mean Platelet Volume 9.6 fL (9.5-12.2); Monocytes # (A) 0.99 X 10*3/uL (0.20-1.00); Monocytes % (A) 12.4 %; Neutrophils # (A) 4.61 X 10*3/uL (1.80-7.70); Neutrophils % (A) 57.5 %; Platelet Count 220 X 10*3/uL (140-440); RBC 4.56 X 10*6/uL (4.40-5.60)
[2021-05-10 10:13] LABS: African American GFR (CKD) 94.4 (60.0-200.0); Anion Gap 8.7 mmol/L (4.00-12.00); Calcium 8.5 mg/dL (8.7-10.3); Carbon Dioxide 29.3 mmol/L (21.6-31.8); Magnesium 1.6 mg/dL (1.5-2.4); Non-African American GFR(CKD) 81.4 (60.0-200.0); Potassium 4.4 mmol/L (3.5-5.5)
--- NOTE | 2021-05-10 10:52 | P.PN ---
Subjective Progress Note Date: 05/10/21 Principal diagnosis: Status post right total knee arthroplasty Patient evaluated at bedside, resting in his hospital chair. He is doing rather well at this time. He did not get up yesterday with therapy. He was able to get up and ambulate today. The little difficulty with getting to the bathroom, but no not lightheadedness or headaches. Denies any chest pain or shortness of breath. Objective - Vital Signs Vital signs: Vital Signs Temp 98.4 F 05/10/21 01:05 Pulse 77 05/10/21 08:32 Resp 15 05/10/21 08:32 BP 115/66 05/10/21 01:05 Pulse Ox 94 L 05/10/21 01:05 Intake & Output 05/09/21 05/10/21 05/10/21 18:59 06:59 18:59 Intake Total 2676 Output Total 45 Balance 2631 Weight 145.5 kg Intake: IV 2576 Intake, IV Titration 100 Amount ceFAZolin 3 gm In Sodium 100 Chloride 0.9% 100 ml @ 200 mls/hr IVPB Q8HR OZZIE Rx#:[id number] Output: Estimated Blood Loss 45 Other: Voiding Method Urinal Toilet # Voids 2 - Exam Right lower extremity: Incision is clean, dry, and intact. The foam dressing is in good condition. There is minimal soft tissue swelling and ecchymosis surrounding the medial and lateral aspects of the incision. Calf is soft, no tenderness with palpation. Plantar flexion, dorsiflexion, EHL, FHL are intact. Sensory exam to light touch throughout the extremity is intact, dorsal pedis pulses 2+. - Labs CBC & Chem 7: 05/10/21 06:19 05/10/21 06:19 Labs: Abnormal Lab Results - Last 24 Hours (Table) 05/09/21 05/09/21 05/10/21 Range/Units 16:53 21:13 06:19 MCHC 31.8 L (32.0-37.0) g/dL Eosinophils # 0.57 H (0.04-0.35) X 10*3/uL Sodium (135-145) mmol/L Chloride (96-109) mmol/L Glucose (70-110) mg/dL POC Glucose (mg/dL) 134 H 146 H (75-99) mg/dL Calcium (8.7-10.3) mg/dL 05/10/21 05/10/21 Range/Units 06:19 06:58 MCHC (32.0-37.0) g/dL Eosinophils # (0.04-0.35) X 10*3/uL Sodium 133 L (135-145) mmol/L Chloride 95 L (96-109) mmol/L Glucose 143 H (70-110) mg/dL POC Glucose (mg/dL) 146 H (75-99) mg/dL Calcium 8.5 L (8.7-10.3) mg/dL Assessment and Plan Assessment: Status post right total knee arthroplasty Plan: Pain control, patient does state [place] 7.5 mg/325 mg for chronic back pain. We'll increase to 10 mg/325 mg for 2 weeks and advised patient to call his pain management doctor regarding this change in medication GI and DVT prophylaxis, aspirin 81 mg twice a day for 1 month Wound care instructions were discussed Encourage incentive spirometer Medical recommendations Discharge planning: Plan for discharge home today Time with Patient: Less than 30
[2021-05-10 11:02] VITALS: RESP 18; TEMP 98.2
[2021-05-10 11:36] LABS: Glucose,Whole Blood 182 mg/dL (75-99)
--- NOTE | 2021-05-10 12:17 | P.PN ---
Subjective Progress Note Date: 05/10/21 No new complaints today. Pt doing well with leg exercises. Has no cp, palps, dyspnea, fevers, chills. Had a fall today, but did not hit his head. Objective - Vital Signs Vital signs: Vital Signs Temp 98.2 F 05/10/21 09:00 Pulse 105 H 05/10/21 09:00 Resp 18 05/10/21 09:00 BP 111/68 05/10/21 09:00 Pulse Ox 95 05/10/21 09:00 Intake & Output 05/09/21 05/10/21 05/10/21 18:59 06:59 18:59 Intake Total 2676 Output Total 45 Balance 2631 Weight 145.5 kg Intake: IV 2576 Intake, IV Titration 100 Amount ceFAZolin 3 gm In Sodium 100 Chloride 0.9% 100 ml @ 200 mls/hr IVPB Q8HR OZZIE Rx#:[id number] Output: Estimated Blood Loss 45 Other: Voiding Method Urinal Toilet # Voids 2 - Exam Gen: awake, alert HEENT: normocephalic, atraumatic, good hearing acuity, moist mucous membranes Resp: good air exchange, breathing comfortably with no accessory muscle use CVS: good distal perfusion x 4, GI: soft, NTTP, ND : no SPT, no CVAT, taylor catheter not present MSK: no pitting edema, no clubbing Neuro: non-focal, moving all extremities Psych: cooperative, euthymic mood - Labs CBC & Chem 7: 05/10/21 06:19 05/10/21 06:19 Labs: Abnormal Lab Results - Last 24 Hours (Table) 05/09/21 05/09/21 05/10/21 Range/Units 16:53 21:13 06:19 MCHC 31.8 L (32.0-37.0) g/dL Eosinophils # 0.57 H (0.04-0.35) X 10*3/uL Sodium (135-145) mmol/L Chloride (96-109) mmol/L Glucose (70-110) mg/dL POC Glucose (mg/dL) 134 H 146 H (75-99) mg/dL Calcium (8.7-10.3) mg/dL 05/10/21 05/10/21 05/10/21 Range/Units 06:19 06:58 11:35 MCHC (32.0-37.0) g/dL Eosinophils # (0.04-0.35) X 10*3/uL Sodium 133 L (135-145) mmol/L Chloride 95 L (96-109) mmol/L Glucose 143 H (70-110) mg/dL POC Glucose (mg/dL) 146 H 182 H (75-99) mg/dL Calcium 8.5 L (8.7-10.3) mg/dL Assessment and Plan Assessment: Status post right total knee arthroplasty -Surgical procedure completed by Dr. Macdonald -Pain management, weightbearing, PT/OT, and DVT prophylaxis per primary admitting orthopedic team. Hypertension, -Monitor vital signs and continue daily medication regimen. Hyperlipidemia, Continue daily medication regimen with atorvastatin 20 mg nightly. Sinus tachycardia, Continue daily medication management with atenolol. COPD not on home oxygen dependent -Oxygenation to be provided as needed to maintain SpO2 equal to or greater than 92%, patient currently on room air. -Encourage use of incentive spirometry. Insulin-dependent diabetes mellitus type 2 -Glycemic protocol with NovoLog sliding scale and Levemir 36 units nightly Diabetic neuropathy -Continue daily medication regimen with Neurontin 1200 mg 3 times daily Obstructive sleep apnea CPAP dependent nightly -Continue home CPAP nightly Thank you for allowing us to participate in the care of this pleasant patient. Do not hesitate to contact us with questions. Someone can be reached from the [facility] hospitalist group all hours of the day at [phone] or via [employer].
[2021-05-10 15:24] VITALS: BP 107/67; PULSE 87
== END 2021-05-10 15:50 | disposition home health service (06) ==
LOC: OR 05:37 → 4SSUR 13:58 → OR 23:43
PROVIDERS: ADMIT Orthopaedic Surgery; ATTEND Orthopaedic Surgery
DX: M17.11 Unilateral primary osteoarthritis, right knee (principal); E11.40 Type 2 diabetes mellitus with diabetic neuropathy, unspecified; I10 Essential (primary) hypertension; E78.5 Hyperlipidemia, unspecified; J44.9 Chronic obstructive pulmonary disease, unspecified; G47.33 Obstructive sleep apnea (adult) (pediatric); K21.9 Gastro-esophageal reflux disease without esophagitis; R00.0 Tachycardia, unspecified; G43.909 Migraine, unspecified, not intractable, without status migrainosus; F41.9 Anxiety disorder, unspecified; G89.29 Other chronic pain; M54.9 Dorsalgia, unspecified; W19.XXXA Unspecified fall, initial encounter; Z79.82 Long term (current) use of aspirin; Z79.4 Long term (current) use of insulin; Z79.51 Long term (current) use of inhaled steroids; Z79.899 Other long term (current) drug therapy; Z88.8 Allergy status to other drugs, medicaments and biological substances; Z96.652 Presence of left artificial knee joint; Z98.890 Other specified postprocedural states; Z80.0 Family history of malignant neoplasm of digestive organs; Z80.3 Family history of malignant neoplasm of breast; Z84.89 Family history of other specified conditions
CPT/HCPCS: 94640 ×2; 97116; 97161; 64999; 64448; 76942; 80048; 83735; 84132; 85025; 88300; 73560; 27447; G0378; C1776; C1713 ×2; J2250; J1200; J0690 ×3; J2405; J1650; J3010; J1170 ×3; J2795 ×2; J2370; J2704

== ENCOUNTER 2021-10-14 13:39 | Emergency (ER) | payer OTHER ==
[2021-10-14 13:53] VITALS: TEMP 97.1
[2021-10-14] MEDS ORDERED: MORPHINE SULFATE 4 MG/ML SYRINGE IVP STA (14:14)
[2021-10-14 14:52] LABS: Appearance,Urine Clear (Clear); Bacteria,Urine Rare /hpf; Bilirubin,Urine Negative (Negative); Blood,Urine Negative (Negative); Color,Urine Yellow; Glucose,Urine (UA) 4+ (Negative); Ketones,Urine Negative (Negative); Leukocyte Esterase,Urine Negative (Negative); Mucus,Urine Rare /hpf; Nitrite,Urine Positive (Negative); Protein,Urine Negative (Negative); RBC,Urine <1 /hpf (0-5); Specific Gravity,Urine 1.041 (1.001-1.035); Urobilinogen,Urine <2.0 mg/dL (<2.0); WBC,Urine 2 /hpf (0-5)
[2021-10-14 14:55] LABS: ALT 25 U/L (4-49); AST 29 U/L (17-59); African American GFR (CKD) >90 (>60 ml/min/1.73 sqM); Albumin 4.8 g/dL (3.5-5.0); Alkaline Phosphatase 73 U/L (38-126); Amylase 55 U/L (30-110); Anion Gap 10 mmol/L; Blood Urea Nitrogen 15 mg/dL (9-20); Calcium 9.7 mg/dL (8.4-10.2); Carbon Dioxide 22 mmol/L (22-30); Chloride 103 mmol/L (98-107); Glucose 91 mg/dL (74-99); Non-African American GFR(CKD) >90 (>60 ml/min/1.73 sqM); Potassium 4.5 mmol/L (3.5-5.1); Sodium 135 mmol/L (137-145); Total Bilirubin 0.9 mg/dL (0.2-1.3); Total Protein 7.6 g/dL (6.3-8.2)
[2021-10-14 14:59] LABS: Basophils # (A) 0.1 k/uL (0-0.2); Basophils % (A) 1 %; Eosinophils # (A) 0.6 k/uL (0-0.7); Eosinophils % (A) 8 %; HCT 47.9 % (39.0-53.0); HGB 15.6 gm/dL (13.0-17.5); Lymphocytes # (A) 2.5 k/uL (1.0-4.8); Lymphocytes % (A) 33 %; MCH 29.6 pg (25.0-35.0); MCHC 32.5 g/dL (31.0-37.0); MCV 90.9 fL (80.0-100.0); Mean Platelet Volume 7.4; Monocytes # (A) 0.4 k/uL (0-1.0); Monocytes % (A) 5 %; Neutrophils # (A) 3.9 k/uL (1.3-7.7); Neutrophils % (A) 51 %; Platelet Count 248 k/uL (150-450); RBC 5.27 m/uL (4.30-5.90); RDW 14.1 % (11.5-15.5); WBC 7.7 k/uL (3.8-10.6)
[2021-10-14 15:08] VITALS: BP 125/79; PULSE 80; RESP 18
[2021-10-14 15:11] LABS: Lipase 85 U/L (23-300)
--- NOTE | 2021-10-14 15:54 | CT ---
EXAMINATION TYPE: CT abdomen pelvis w con DATE OF EXAM: 10/14/2021 COMPARISON: NONE HISTORY: 61-year-old male Mid to lower abdominal pain x 2 1/2 weeks with diarrhea. TECHNIQUE: Contiguous axial scanning of the abdomen and pelvis following administration of 100 ml Iso gus 300 IV contrast. Delayed images through the kidneys and coronal/sagittal reconstructions perform ed. CT DLP: 2382.2 mGycm Automated exposure control for dose reduction was used. FINDINGS: Heart normal size without pericardial effusion. Mild LAD and RCA coronary artery calcifications. Mild aneurysm aortic root at 4.1 cm. Lung bases clear without pleural effusion. Low attenuation of the hepatic parenchyma. Portal venous system is patent. No biliary ductal dilatati on. 1.3 cm stone dependent in the gallbladder. Gallbladder is distended to the upper limits of normal wit hout destiny hydropic change or wall thickening. Adrenal glands, right kidney, spleen, and pancreas within normal limits. Tiny 2 mm nonobstructive left lower pole renal calculus. Mild atherosclerotic calcifications abdominal aorta without aneurysm. Hyperdense flecks seen throughout the jejunum. No dilated small bowel, free fluid, or free air. No me senteric or retroperitoneal lymphadenopathy. Normal appendix. Mild to moderate stool burden. No pericolonic inflammatory change. Bladder urine distended. Prostate gland measures 5.1 cm wide. No abnormal fluid collection in the pel vis. Numerous nonenlarged right external iliac chain lymph nodes measuring up to 7 mm. No pelvic lymp hadenopathy by size criteria. Bones: Moderate degenerative change of the right hip. Cam deformity at the anterior right femoral nec k junction suggests chronic femoral acetabular impingement syndrome. No osseous destructive process. IMPRESSION: 1. A 1.3 CM GALLSTONE. NO ANCILLARY FINDINGS OF ACUTE CHOLECYSTITIS. 2. TINY 2 MM NONOBSTRUCTIVE LEFT RENAL CALCULUS. 3. HYPERDENSE FLECKS SEEN THROUGHOUT THE JEJUNUM LIKELY INGESTED MATERIAL SUCH PEPTO-BISMOL, ANTAC IDS, MULTIVITAMINS, IRON SUPPLEMENTS, ETC. CORRELATE TO EXCLUDE OTHER HEAVY METAL INGESTION. 4. HEPATIC STEATOSIS. MILD TO MODERATE STOOL BURDEN. PROSTATOMEGALY AT 5.1 CM WIDE. 5. 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 6. MILD RIGHT HIP OA SECONDARY TO CHRONIC CAM-TYPE TOM.
--- NOTE | 2021-10-14 16:01 | ED ---
Abdominal Pain HPI - General Chief Complaint: Abdominal Pain Stated Complaint: abd & back pain Time Seen by Provider: 10/14/21 13:56 Source: patient Mode of arrival: ambulatory - History of Present Illness Initial Comments: Patient is a 61-year-old male with a past medical history of diabetes mellitus, hyperlipidemia, and GERD who presents to the emergency department with a chief complaint of lower abdominal pain 2.5 weeks. He has never experienced these symptoms before. Patient states he noticed pain a few days after his Ozempic dose was increased. Patient describes the pain as a constant aching with radiation to the bilateral flanks and bilateral lower back, 7/10 in severity. Patient states the pain is worse with movement. No mechanism of injury. He denies fever, chills, shortness of breath, chest pain, nausea, and vomiting. He does note that he has recently experienced diarrhea after being prescribed Augmentin for sinus infection but the diarrhea resolved 2 days ago. He denies history of kidney stones and abdominal surgery. - Related Data Home Medications Medication Instructions Recorded Confirmed Aspirin 81 mg PO DAILY 12/28/14 09/14/21 Insulin Glargine [Lantus] 60 unit SQ QAM 12/28/14 09/14/21 metFORMIN HCL [Glucophage] 1,000 mg PO BID 12/28/14 09/14/21 atenoloL [Tenormin] 50 mg PO DAILY 09/07/16 09/14/21 Gabapentin [Gralise] 1,200 mg PO TID 09/24/19 09/14/21 Omeprazole 20 mg PO DAILY PRN 09/24/19 09/14/21 Cholecalciferol [Vitamin D3 (25 50 mcg PO DAILY 10/25/20 09/14/21 Mcg = 1000 Iu)] Clindamycin Gel [Clindamycin 1 applic TOPICAL BID PRN 10/25/20 09/14/21 Phosphate 1% Gel] Empagliflozin [Jardiance] 25 mg PO DAILY 09/14/21 09/14/21 Semaglutide [Ozempic] 1 mg SQ MO 09/14/21 09/14/21 Albuterol Sulfate [Albuterol 2 puff PO RT-Q6H PRN 10/14/21 10/14/21 Sulfate Hfa] Carboxymethylcellulose Sodium 1 drop BOTH EYES QID 10/14/21 10/14/21 [Refresh Tears] Doxycycline Hyclate 100 mg PO BID 10/14/21 10/14/21 Fluticasone Propion/Salmeterol 1 puff PO RT-BID PRN 10/14/21 10/14/21 [Fluticasone-Salmeterol 250-50] HYDROcodone/APAP 7.5-325MG [[place] 1 tab PO TID PRN 10/14/21 10/14/21 7.5-325] Sildenafil Citrate 100 mg PO DAILY PRN 10/14/21 10/14/21 Simvastatin [Zocor] 40 mg PO HS 10/14/21 10/14/21 traZODone HCL 150 mg PO HS 10/14/21 10/14/21 Previous Rx's Medication Instructions Recorded Sulfamethox-Tmp 800-160Mg [Bactrim 1 each PO Q12HR #10 tab 10/14/21 Ds] Tamsulosin [Flomax] 0.4 mg PO DAILY #10 cap 10/14/21 Allergies Allergy/AdvReac Type Severity Reaction Status Date / Time pregabalin [From Lyrica] Allergy Unknown Depression. Verified 10/14/21 16:40 Review of Systems ROS Statement: Those systems with pertinent positive or pertinent negative responses have been documented in the HPI. ROS Other: All systems not noted in ROS Statement are negative. Past Medical History Past Medical History: Asthma, COPD, Diabetes Mellitus, GERD/Reflux, Hyperlipidemia Additional Past Medical History / Comment(s): HX OF MIGRAINES, HX OF SVT., FREQ UENT URINATION. History of Any Multi-Drug Resistant Organisms: None Reported Past Surgical History: Joint Replacement, Orthopedic Surgery Additional Past Surgical History / Comment(s): ARTHROSCOPY MAE KNEES APPROX 4 TIMES EACH., HAMMER TOE LEFT SMALL TOE, TMJ RECONSTRUCTION, TOTAL LEFT KNEE X2. RT TKA Past Anesthesia/Blood Transfusion Reactions: Family History of Problems w/ Anesthesia, Motion Sickness Additional Past Anesthesia/Blood Transfusion Reaction / Comment(s): SISTER HAS DIFFICULTY WAKING UP. Past Psychological History: Anxiety Smoking Status: Former smoker, Vaper Past Alcohol Use History: None Reported Past Drug Use History: None Reported - Past Family History Mother Family Medical History: Cancer Additional Family Medical History / Comment(s): COLON CANCER WITH METS. Sister(s) Family Medical History: Cancer Additional Family Medical History / Comment(s): BREAST CANCER Course Vital Signs 10/14/21 10/14/21 13:47 15:04 Temperature 97.1 F L Pulse Rate 82 80 Respiratory 16 18 Rate Blood Pressure 129/82 125/79 O2 Sat by Pulse 97 97 Oximetry Medical Decision Making - Medical Decision Making This is a 61-year-old male with a past medical history of diabetes mellitus, hyperlipidemia, and GERD, who presents with lower abdominal pain x 2.5 weeks. CBC and CMP are unremarkable. Urinalysis reveals positive nitrates. CT of the abdomen/pelvis reveals a tiny 2 mm nonobstructive left renal calculus. It also showed a 1.3 cm gallstone with no acute cholecystitis, hyperdense flecks through the jejunum, hepatic steatosis, mild aneurysmal aortic root, and mild right hip osteoarthritis. Results discussed with patient. Patient notes that he took Pepto-Bismol this morning, which correlates with CT findings. Patient discharged with Flomax and Bactrim. Discussed with patient that the stone is small and likely to pass. Patient instructed to drink a lot of fluids and to take medication as prescribed. I did refer him to a urologist if symptoms do not improve in 7-10 days. I also referred him to vascular surgery for follow-up regarding the mild aneurysmal aortic root found on CT. Return parameters discussed. - Lab Data Result diagrams: 10/14/21 14:23 10/14/21 14:23 Lab Results 10/14/21 10/14/21 10/14/21 Range/Units 14:23 14:23 14:23 WBC 7.7 (3.8-10.6) k/uL RBC 5.27 (4.30-5.90) m/uL Hgb 15.6 (13.0-17.5) gm/dL Hct 47.9 (39.0-53.0) % MCV 90.9 (80.0-100.0) fL MCH 29.6 (25.0-35.0) pg MCHC 32.5 (31.0-37.0) g/dL RDW 14.1 (11.5-15.5) % Plt Count 248 (150-450) k/uL MPV 7.4 Neutrophils % 51 % Lymphocytes % 33 % Monocytes % 5 % Eosinophils % 8 % Basophils % 1 % Neutrophils # 3.9 (1.3-7.7) k/uL Lymphocytes # 2.5 (1.0-4.8) k/uL Monocytes # 0.4 (0-1.0) k/uL Eosinophils # 0.6 (0-0.7) k/uL Basophils # 0.1 (0-0.2) k/uL Sodium 135 L (137-145) mmol/L Potassium 4.5 (3.5-5.1) mmol/L Chloride 103 (98-107) mmol/L Carbon Dioxide 22 (22-30) mmol/L Anion Gap 10 mmol/L BUN 15 (9-20) mg/dL Creatinine 0.84 (0.66-1.25) mg/dL Est GFR (CKD-EPI)AfAm >90 (>60 ml/min/1.73 sqM) Est GFR (CKD-EPI)NonAf >90 (>60 ml/min/1.73 sqM) Glucose 91 (74-99) mg/dL Calcium 9.7 (8.4-10.2) mg/dL Total Bilirubin 0.9 (0.2-1.3) mg/dL AST 29 (17-59) U/L ALT 25 (4-49) U/L Alkaline Phosphatase 73 (38-126) U/L Total Protein 7.6 (6.3-8.2) g/dL Albumin 4.8 (3.5-5.0) g/dL Amylase 55 (30-110) U/L Lipase 85 (23-300) U/L Urine Color Yellow Urine Appearance Clear (Clear) Urine pH 5.0 (5.0-8.0) Ur Specific [place] 1.041 H (1.001-1.035) Urine Protein Negative (Negative) Urine Glucose (UA) 4+ H (Negative) Urine Ketones Negative (Negative) Urine Blood Negative (Negative) Urine Nitrite Positive (Negative) Urine Bilirubin Negative (Negative) Urine Urobilinogen <2.0 (<2.0) mg/dL Ur Leukocyte Esterase Negative (Negative) Urine RBC <1 (0-5) /hpf Urine WBC 2 (0-5) /hpf Urine Bacteria Rare H (None) /hpf Urine Mucus Rare H (None) /hpf Disposition Clinical Impression: Nephrolithiasis Disposition: HOME SELF-CARE Condition: Good Instructions (If sedation given, give patient instructions): Kidney Stones (ED) Additional Instructions: Take medication as prescribed. Increase fluid intake in effort to pass stone. Schedule an appointment with urologist Dr. Mtz if symptoms do not improve in 7-10 days. Schedule at appointment with vascular surgeon specialist Dr. Velazquez at earliest available appointment. Return to the emergency department if you experience any new, concerning, or worsening symptoms. Prescriptions: Sulfamethox-Tmp 800-160Mg [Bactrim Ds] 1 each PO Q12HR #10 tab Tamsulosin [Flomax] 0.4 mg PO DAILY #10 cap Is patient prescribed a controlled substance at d/c from ED?: No Referrals: [facility],Clinic [Primary Care Provider] - 1-2 days Stepan Trinidad DO [Doctor of Osteopathic Medicine] - 1-2 days Main Mtz MD [STAFF PHYSICIAN] - 1-2 days Decision Time: 16:55
== END 2021-10-14 17:43 | disposition home or self-care (01) ==
LOC: EC 13:39
DX: N20.0 Calculus of kidney (principal); J44.9 Chronic obstructive pulmonary disease, unspecified; E11.9 Type 2 diabetes mellitus without complications; K21.9 Gastro-esophageal reflux disease without esophagitis; E78.5 Hyperlipidemia, unspecified; G43.909 Migraine, unspecified, not intractable, without status migrainosus; Z87.891 Personal history of nicotine dependence; Z79.899 Other long term (current) drug therapy; Z88.8 Allergy status to other drugs, medicaments and biological substances; Z79.51 Long term (current) use of inhaled steroids; Z79.82 Long term (current) use of aspirin; Z79.4 Long term (current) use of insulin; Z79.84 Long term (current) use of oral hypoglycemic drugs
CPT/HCPCS: 36415; 80053; 82150; 83690; 85025; 81001; 74177; 99284; 96374; J2270; Q9967

== ENCOUNTER → 2021-12-26 | Outpatient (CLI) | payer OTHER ==
--- NOTE | 2021-12-27 07:55 | ECHOF ---
Referral Reason:I71.4 MEASUREMENTS -------- HEIGHT: 188.0 cm WEIGHT: 124.7 kg BP: RVIDd: 2.3 cm (< 3.3) IVSd: 1.0 cm (0.6 - 1.1) LVIDd: 5.1 cm (3.9 - 5.3) LVPWd: 0.8 cm (0.6 - 1.1) IVSs: 1.5 cm LVIDs: 3.1 cm LVPWs: 1.1 cm LAESV Index (A-L): 20.81 ml/m Ao Diam: 4.1 cm (2.0 - 3.7) AV Cusp: 2.0 cm (1.5 - 2.6) MV EXCURSION: 15.965 mm (> 18.000) MV EF SLOPE: 31 mm/s (70 - 150) EPSS: 0.7 cm MV E Unruly: 0.37 m/s MV DecT: 360 ms MV A Unruly: 0.79 m/s MV E/A Ratio: 0.47 RAP: 5.00 mmHg RVSP: 19.35 mmHg FINDINGS -------- Sinus rhythm. This was a technically good study. LV size, wall thickness and systolic function are normal, with an EF greater than 55%. The left anival tricular size is normal. The right ventricle is normal in size. Normal LA size by volume 22+/-6 ml/m2. The right atrial size is normal. Mild mitral regurgitation is present. Mild tricuspid regurgitation present. Right ventricular systolic pressure is normal at < 35 mmHg. There is no pulmonic regurgitation present. Aortic Root is dilated and measure 4.1cm. There is no pericardial effusion. CONCLUSIONS -------- 1. LV size, wall thickness and systolic function are normal, with an EF greater than 55%. 2. The left ventricular size is normal. 3. The right ventricle is normal in size. 4. Normal LA size by volume 22+/-6 ml/m2. 5. The right atrial size is normal. 6. Mild mitral regurgitation is present. 7. Mild tricuspid regurgitation present. 8. Aortic Root is dilated and measure 4.1cm. 9. There is no pericardial effusion. MAGNETIC DOCTOR: Gavi Sharma RDCS
== END | disposition home or self-care (01) ==
LOC: RADECHMAIN 13:02
DX: I71.4 Abdominal aortic aneurysm, without rupture (principal)
CPT/HCPCS: 93306

== ENCOUNTER → 2022-06-14 | Outpatient (CLI) | payer OTHER ==
--- NOTE | 2022-06-14 10:21 | CT ---
EXAMINATION TYPE: CT chest wo con DATE OF EXAM: 06/14/2022 COMPARISON: 12/22/2021 HISTORY: Abnormal finding of lung field, enlarged vessel in heart per patient CT DLP: 577 mGycm, Automated exposure control for dose reduction was used. CONTRAST: Performed injected with 0 mL of Isovue 300. TECHNIQUE: Axial images were obtained at 5 mm thick sections. Reconstructed images are reviewed on [employer] computer in the coronal plane. FINDINGS: Portion of the thyroid visualized is normal. There is a 0.5 cm density at the peripheral posterior lateral right apex. This appears more focal demetrice n comparison study. Close monitoring is recommended. There is a 0.4 cm nodule in the anterolateral right upper lung field. Series 4 image 19. This may be enlarging from comparison. Subtle density may be within the major fissure on the right, series 4 image 23. No enlarged mediastinal or hilar nodes are evident. The ascending aorta diameter at the level of the main pulmonary artery is 4.0 cm. The main pulmonary artery diameter at the bifurcation is 2.5 cm. M ild coronary artery calcification is present. Limited CT sections are obtained through the upper abdomen. There is a gallstone present. IMPRESSIONS: 1. Enlarging nodules within the right upper lung field discussed above. Neoplasm should be considered . Other etiologies remain within the differential. 2. Ascending thoracic aortic aneurysm 4.0 cm. 3. Cholelithiasis
== END | disposition home or self-care (01) ==
LOC: RADCTMAIN 09:49
DX: R91.8 Other nonspecific abnormal finding of lung field (principal)
CPT/HCPCS: 71250

== ENCOUNTER → 2022-08-18 | Outpatient (CLI) | payer OTHER ==
--- NOTE | 2022-08-18 13:46 | PE ---
EXAMINATION TYPE: PET CT fusion skull to thigh DATE OF EXAM: 08/18/2022 COMPARISON: CT abdomen and pelvis October 14, 2021 HISTORY: Solitary pulmonary nodule. TECHNIQUE: Following the intravenous administration of 11.28 mCi of F-18 FDG, whole body images are performed from the skull base to the midthigh. Images are reviewed on the computer in the coronal, a xial, and sagittal planes. Reconstructed rotating images are created on independent workstation and reviewed on the computer. A localization and attenuation correction CT is performed in conjunction with the PET scan. Blood glucose level was 122. SCAN: Initial Scan FINDINGS: SKULL BASE AND NECK: No areas of abnormal hypermetabolic uptake. CHEST, MEDIASTINUM, AND HILAR REGION: Single peripheral roughly 5 to 6 mm subpleural left lower lobe nodule axial image 119. No abnormal hypermetabolic uptake in the thorax. ABDOMEN AND PELVIS: Normal excretion. Nonspecific bowel uptake somewhat prominent involving the left and sigmoid colon in a contiguous fashion. No adrenal masses. No suspicious hypermetabolic uptake. OSSEOUS STRUCTURES: No abnormal hypermetabolic uptake. OTHER CT: At least moderate three-vessel coronary artery calcification. There is left-sided arch with aberrant right brachiocephalic artery running posterior to the esophagus which is normal variant. Ga llbladder now surgically absent. Mildly enlarged prostate consistent with BPH. Facet arthropathy lowe r lumbar levels. IMPRESSION: No suspicious hypermetabolic nodules. Consider follow-up CT as per Fleischner Society rec ommendations.
== END | disposition home or self-care (01) ==
LOC: RADPETMAIN 09:52
PROVIDERS: ATTEND Internal Medicine Critical Care Medicine
DX: R91.8 Other nonspecific abnormal finding of lung field (principal)
CPT/HCPCS: 78815; A9552

== ENCOUNTER → 2023-01-08 | Outpatient (CLI) | payer OTHER ==
--- NOTE | 2023-01-08 13:57 | CT ---
EXAMINATION TYPE: CT chest wo con DATE OF EXAM: 01/08/2023 COMPARISON: 06/06/2020 HISTORY: hx of aortic valve budge. CT DLP: 437.60 mGycm. Automated Exposure Control for Dose Reduction was Utilized. TECHNIQUE: CT scan of the thorax is performed without IV contrast. FINDINGS: LUNGS: Stable 5 mm right posterior lung nodule. Stable 4 mm anterior right upper lobe nodule Stable 1 mm right upper lobe lateral lung nodule image 17 Stable 2 mm right lower lobe nodule axial 35. Stable 3 mm subpleural nodule superior segment left lower lobe. There is no pleural effusion or pneumothorax seen. The tracheobronchial tree is patent. MEDIASTINUM: Lack of IV contrast is noted to limit evaluation for mediastinal and especially hilar ad enopathy. There are no definitive greater than 1 cm hilar or mediastinal lymph nodes. No cardiomega ly or pericardial effusion is seen. Mild pericardial lipomatosis. Aorta: Aortic valve is not well seen due to noncontrast technique. Maximal dimension of the aorta eddie sures 4.0 cm near the ascending aorta. There are no calcifications in the region of the aortic valve. Mild atherosclerotic changes aorta. There is coronary artery dense calcifications. OTHER: Correlate for previous cholecystectomy. Hypertrophic and degenerative changes of the spine.. IMPRESSION: 1. Aorta demonstrates measures 4.0 cm in greatest dimension with no evidence of aortic valve calcific ation. There is concern for aortic valve abnormality consider correlation with echocardiogram. Border line to mild aneurysmal dilation stable from prior exam. 2. Stable subcentimeter multiple bilateral pulmonary nodules unchanged prior exam. Most likely benign . Recommend follow-up CT as per Fleischner Society recommendations. 3. Dense coronary artery calcifications.
== END | disposition home or self-care (01) ==
LOC: RADCTMAIN 12:57
PROVIDERS: ATTEND Surgery
DX: I71.20 Thoracic aortic aneurysm, without rupture, unspecified (principal); I25.10 Atherosclerotic heart disease of native coronary artery without angina pectoris; R91.8 Other nonspecific abnormal finding of lung field
CPT/HCPCS: 71250

== ENCOUNTER → 2023-03-05 | Outpatient (CLI) | payer OTHER ==
[2023-03-05 12:28] LABS: African American GFR (CKD) >90 (>60 ml/min/1.73 sqM); Blood Urea Nitrogen 11 mg/dL (9-20); Non-African American GFR(CKD) >90 (>60 ml/min/1.73 sqM)
--- NOTE | 2023-03-05 13:06 | CT ---
EXAMINATION TYPE: CT chest w con DATE OF EXAM: 03/05/2023 COMPARISON: 01/08/2023 HISTORY: prior abnormal lung scan CT DLP: 443 mGycm Automated exposure control for dose reduction was used. CONTRAST: CT scan of the chest is performed with IV Contrast, patient injected with 100 mL of Isovue 300. FINDINGS: LUNGS: . There are few stable scattered sub-5 mm pulmonary nodules. No increasing nodules or new nodu les present at this time.There is no pleural effusion or pneumothorax seen. The tracheobronchial geno e is patent. MEDIASTINUM: There are no greater than 1 cm hilar or mediastinal lymph nodes. No pericardial effusi on is seen. Stable ascending thoracic aorta borderline to mild aneurysm at 4 cm. Coronary artery calc ifications redemonstrated The heart is not enlarged. UPPER ABDOMEN: Hepatic steatosis. The gallbladder is surgically absent. OTHER: No additional significant abnormality is seen. IMPRESSION: 1.. There are few stable scattered sub-5 mm pulmonary nodules. No increasing nodules or new nodules p resent at this time.
== END | disposition home or self-care (01) ==
LOC: RADCTMAIN 11:58
PROVIDERS: ATTEND Internal Medicine Critical Care Medicine
DX: R91.8 Other nonspecific abnormal finding of lung field (principal)
CPT/HCPCS: 82565; 84520; 71260; 36415; Q9967

== ENCOUNTER → 2023-09-20 | Outpatient (CLI) | payer OTHER ==
[2023-09-20 10:48] LABS: African American GFR (CKD) >90 (>60 ml/min/1.73 sqM); Blood Urea Nitrogen 16 mg/dL (9-20); Non-African American GFR(CKD) >90 (>60 ml/min/1.73 sqM)
--- NOTE | 2023-09-20 11:49 | CT ---
EXAMINATION TYPE: CT chest w con DATE OF EXAM: 09/20/2023 COMPARISON: Prior chest CT March 05, 2023 and older studies HISTORY: nodule CT DLP: 581 mGycm. Automated Exposure Control for Dose Reduction was Utilized. TECHNIQUE: CT scan of the thorax is performed following with IV Contrast, patient injected with 100 mL of Isovue 300. FINDINGS: LUNGS: Grossly stable 5 mm peripheral left lower lobe nodule axial image 44 unchanged size and appear ance back to December 22, 2021. Greater than two-year stability is consistent with benign lesion. Scatt ered additional micronodules are stable. No new or enlarging greater than 5 mm pulmonary nodules. Sta ble focal scarring peripheral right upper lobe axial image 11. There is no pleural effusion or pneumo thorax seen. The tracheobronchial tree is patent. MEDIASTINUM: There are no greater than 1 cm hilar or mediastinal lymph nodes. No cardiomegaly or pe ricardial effusion is seen. Stable left-sided arch with bovine takeoff of the bilateral common carot id arteries and then aberrant right brachiocephalic artery running posterior to the esophagus, normal variant. Dense coronary artery calcification in the LAD is redemonstrated. Ascending aorta measures up to 4.6 cm in the aortic root on current study coronal image 33 unchanged from most recent study in retrospect. OTHER: Cholecystectomy clips are again seen. IMPRESSION: 1. No new or enlarging greater than 5 mm pulmonary nodules. No significant change in greater than 2 y ears time. 2. Ascending aortic aneurysm up to 4.6 cm in the aortic root. Advise cardiovascular surgical evaluati on if it has not been performed.
== END | disposition home or self-care (01) ==
LOC: RADCTMAIN 10:16
PROVIDERS: ATTEND Internal Medicine Critical Care Medicine
DX: I71.21 Aneurysm of the ascending aorta, without rupture (principal); R91.8 Other nonspecific abnormal finding of lung field
CPT/HCPCS: 82565; 84520; 71260; 36415; Q9967

== ENCOUNTER → 2024-01-18 | Outpatient (CLI) | payer OTHER ==
--- NOTE | 2024-01-18 12:22 | NM ---
EXAMINATION TYPE: NM stress lexiscan cardiolite DATE OF EXAM: 01/18/2024 COMPARISON: NONE HISTORY: Heart palpitations TECHNIQUE: After the intravenous administration of 8.88 mCi Tc 99m Sestamibi - Cardiolite resting SP ECT images acquired . At peak stress 24.7 mCi Tc 99m Sestamibi - Stress images obtained post injection The patient was stressed with 0.4mg Lexiscan. FINDINGS: No fixed defects are evident No reversible stress defects on Spect images There may be some mild dyskinesia at the cardiac apex Ejection fraction is calculated to be 60 %. IMPRESSION: 1. No stress-induced ischemic changes. 2. Mild dyskinesia of the cardiac apex. Ejection fraction remains normal at 60%
--- NOTE | 2024-01-18 13:11 | CA ---
Lexiscan Nuclear Stress Test Report Name: Karl Ramos Exam Date: 01/18/2024 10:38 Exam Location: [facility] Stress Ht (in): 76 Wt (lb): 187 BSA: 2.15 Ordering Phys: Karl Raygoza DO Referring Phys: Blanca Estrada Technologist: Sally Pack RDCS Age: 63 Gender: M : 1960 Procedure CPT: Indications: R00.2 palpitations ICD-10 Codes: Patient History: PALP, DM, CHOL, FAMILY HX. COPD, ASTHMA Medications: METFORMIN, SIMVASTATIN, ATENOLOL, TRAYODONE, ASPIRIN, CLINDAMYCIN, DOXYCYCLINE, CHOLECACILOFEROL, OMEPRAZOLE, OZEMPIC, JAURDIANCE, Meds past 24 hrs: Pretest Chest Pain: STRESS TEST Lexiscan Protocol Exercise Duration (min:sec): 01:[address] Depressions (mm): Angina Score: Martinez Score: Resting HR (bpm): 75 Peak HR (bpm): 110 Resting BP (mmHg): 117 / 68 Peak BP (mmHg): 123 / 65 MPHR: 157 Target HR: 133 % MPHR: 70 METS: 1.0 Total Dose: Peak Dose: Atropine: Double Product: 96370 BP Response: Stress Termination: END OF DOSE Stress Symptoms: ASYMPTOMATIC Stress Summary: ECG ANALYSIS Resting ECG: Stress ECG: CONCLUSIONS Nondiagnostic electrocardiogram stress testing Dr. Darron Quiroga MD (Electronically Signed) Final Date: 18 Jan 2024 13:10
--- NOTE | 2024-01-18 13:11 | CA ---
Transthoracic Echo Report Name: Karl Ramos Age: 63 Gender: M : 1960 Exam Date: 01/18/2024 09:37 Exam Location: [place] Echo Ht (in): 76 Wt (lb): 187 Ordering Physician: Karl Raygoza DO Attending/Referring Phys: Blanca Estrada PAC Recovery Room Rn Ayleen Brar RDCS Procedure CPT: Indications: R00.2 palpitations Cardiac Hx: Technical Quality: Fair Contrast 1: Total Dose (mL): Contrast 2: Total Dose (mL): MEASUREMENTS (Male / Female) Normal Values 2D ECHO LV Diastolic Diameter PLAX 4.7 cm 4.2 - 5.9 / 3.9 - 5.3 cm LV Systolic Diameter PLAX 3.3 cm IVS Diastolic Thickness 1.1 cm 0.6 - 1.0 / 0.6 - 0.9 cm LVPW Diastolic Thickness 0.9 cm 0.6 - 1.0 / 0.6 - 0.9 cm LV Relative Wall Thickness 0.4 RV Internal Dim ED PLAX 2.1 cm Aortic Root Diameter 4.3 cm LV Diastolic Volume MOD BP 80.2 cm??? 67 - 155 / 56 - 104 cm??? LV Systolic Volume MOD BP 39.2 cm??? 22 - 58 / 19 - 49 cm??? LV Ejection Fraction MOD BP 51.1 % >= 55 % LV Diastolic Volume MOD 4C 78.2 cm??? LV Systolic Volume MOD 4C 41.8 cm??? LV Ejection Fraction MOD 4C 46.5 % LV Diastolic Length 4C 7.7 cm LV Systolic Length 4C 6.7 cm LV Diastolic Volume MOD 2C 81.0 cm??? LV Systolic Volume MOD 2C 36.6 cm??? LV Ejection Fraction MOD 2C 54.8 % LV Diastolic Length 2C 7.5 cm LV Systolic Length 2C 6.9 cm M-MODE Aortic Root Diameter MM 4.4 cm LA Systolic Diameter MM 2.4 cm LA Ao Ratio MM 0.6 DOPPLER AV Peak Velocity 103.8 cm/s AV Peak Gradient 4.3 mmHg Mitral E Point Velocity 68.8 cm/s Mitral A Point Velocity 103.9 cm/s Mitral E to A Ratio 0.7 MV Deceleration Time 232.0 ms MV E' Velocity 8.1 cm/s Mitral E to MV E' Ratio 8.5 FINDINGS Left Ventricle Left ventricular ejection fraction is estimated at 45-50%. Mildly decreased left ventricular ejection fraction. Left ventricular cavity size normal. Reduced global left ventricular systolic function. Right Ventricle Mild right ventricular dilatation. Normal right ventricular global systolic function. Unable to estimate the right ventricular systolic pressure. Right Atrium Normal right atrial size. Left Atrium Normal left atrial size. Mitral Valve Structurally normal mitral valve. Trace mitral regurgitation. Aortic Valve Trileaflet aortic valve. Trace aortic regurgitation. No aortic stenosis. Tricuspid Valve Tricuspid valve not well visualized. Trace tricuspid regurgitation. Pulmonic Valve Structurally normal pulmonic valve. No pulmonic stenosis. No pulmonic regurgitation. Pericardium No pericardial or pleural effusion. Aorta Moderately dilated aortic annulus 4.4cm. CONCLUSIONS Mildly impaired LV function was EF between 45-50% Moderately dilated aortic annulus at 4.4 cm Previewed by: Dr. Darron Quiroga MD (Electronically Signed) Final Date: 18 Jan 2024 13:01
== END | disposition home or self-care (01) ==
LOC: RADNMMAIN 08:43
PROVIDERS: ATTEND Family Medicine
DX: R00.2 Palpitations (principal); G24.9 Dystonia, unspecified; I50.1 Left ventricular failure, unspecified
CPT/HCPCS: 93017; 93306; 78452; A9500

== ENCOUNTER → 2024-01-24 | Outpatient (CLI) | payer OTHER ==
--- NOTE | 2024-01-27 21:38 | MR ---
EXAMINATION TYPE: MR lumbar spine wo con DATE OF EXAM: 01/24/2024 COMPARISON: None HISTORY: 63-year-old male M54.59 LOW BACK PAIN TECHNIQUE: Multiplanar, multisequence images of the lumbar spine were acquired without IV contrast. FINDINGS: Vertebral body heights are preserved and alignment is maintained. Mild degenerative disc desiccation and mild disc bulging is present throughout. Conus medullaris is normal. No suspicious bone marrow replacement. No large focal disc herniation or significant spinal canal stenosis. Facet arthropathy mid to lower lumbar spine. There is mild bilateral neural foraminal stenoses throughout, greatest on the left at L3-L4. No high- grade foraminal compromise. No prevertebral or paravertebral soft tissue abnormality seen. IMPRESSION: 1. Mild multilevel degenerative disc disease and mild to moderate facet arthropathy mid to lower lumb ar spine. 2. No vertebral compression collapse or malalignment. 3. No large focal disc herniation or significant spinal canal stenosis. 4. Variable mild neural foraminal stenoses throughout, greatest on the left at L3-L4.
== END | disposition home or self-care (01) ==
LOC: RADMRIMAIN 11:58
PROVIDERS: ATTEND Family Medicine
DX: M51.36 Other intervertebral disc degeneration, lumbar region (principal); M47.816 Spondylosis without myelopathy or radiculopathy, lumbar region; M99.73 Connective tissue and disc stenosis of intervertebral foramina of lumbar region
CPT/HCPCS: 72148

== ENCOUNTER → 2024-12-16 | Outpatient (CLI) | payer OTHER ==
--- NOTE | 2024-12-16 11:31 | CT ---
EXAMINATION TYPE: CT chest wo con DATE OF EXAM: 12/16/2024 11:20 AM COMPARISON: 09/20/2023. CLINICAL INDICATION: Male, 64 years old with history of I71.20 THORACIC AORTIC ANEURYSM; PHH, Thoraci c aortic aneurysm TECHNIQUE: Multiple axial images were obtained through the chest. Sagittal and coronal reformats were created for review. MIP was performed on a separate workstation. Contrast used: mL of (None if empty) Oral contrast used: (None if empty) CT DLP: 422 mGycm, Automated exposure control for dose reduction was used. FINDINGS: LUNGS/ PLEURA: No focal consolidation, pneumothorax or pleural effusion. Stable right upper lobe and other scattered nodular densities.r including right upper lung 4 mm series 4 image 24. Right middle l obe 4 mm series 4 image 44 and lower lobe 3 mm image 42 AIRWAY: Patent and unremarkable. HEART: Size within normal limits. Moderate coronary artery calcifications present. MEDIASTINUM: No gross evidence of adenopathy. VASCULATURE: No aortic aneurysm. Ascending thoracic aorta measures up to 37 mm. The descending thora cic aorta measures up to 25 mm. 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 MUSCULOSKELETAL: No acute osseous abnormalities SOFT TISSUES/LYMPH NODES: Unremarkable. LOWER NECK: No significant findings. UPPER ABDOMEN: Gallbladder surgically absent. IMPRESSION: 1. No evidence for aortic aneurysm. The ascending thoracic aorta is within normal limits measuring 3 7 mm. 2. No new or enlarging pulmonary nodules. Scattered stable sub 6mm pulmonary nodules Moderate cannon ry artery atherosclerosis. Follow up recommendations for incidental pulmonary nodules, if there are any, are per Fleischner?s [employer] [employer] or [employer]. [email or web address].org/[email or web address]-[email or web address]?lang=us [facility], , 12/16/2024 11:28 AM
== END | disposition home or self-care (01) ==
LOC: RADCTMAIN 10:42
PROVIDERS: ATTEND Surgery
DX: I71.20 Thoracic aortic aneurysm, without rupture, unspecified (principal); R91.1 Solitary pulmonary nodule; I25.10 Atherosclerotic heart disease of native coronary artery without angina pectoris
CPT/HCPCS: 71250

== ENCOUNTER → 2025-04-06 | Outpatient (CLI) | payer OTHER ==
[2025-04-06 13:19] VITALS: BP 100/69; PULSE 78; RESP 16; TEMP 97.3
--- NOTE | 2025-04-06 17:31 | P.PAINPG ---
PQRS Measure Charge Sheet Comment: HISTORY OF PRESENT ILLNESS: A 64 yr old male as a referral from the [facility] presents today w severe and chronic LBP > 2 yrs secondary to radiculopathy, spondylosis and facet arthropathy without myelopathy for evaluation. Pt states pain level is provoked at 7 /10 in intensity, constant, localized in the lumbar spine, predominantly axial, sore in character w occasional shooting pain towards the upper back. Pain is provoked by over activity. Pain is alleviated by medications, topical, Cannabis, repositioning and rest . Oswestry axial pain score at 20. Has tried LESIs and RFA without relief. Interventional procedures include BL Knee Arthroscopy x4 each, L 5th digit Hammer Toe, L Total Knee x2 Medications include Tyl, ASA, Voltaren Gel, Cannabis discontinued REVIEW OF ORGAN SYSTEMS: CONSTITUTIONAL: No fevers or chills. No recent weight loss. NEUROLOGICAL: + numbness and tingling along the distal extremities. No seizure disorders or headaches. MUSCULOSKELETAL: + pain PSYCHIATRIC: Denies current depression or suicidal thoughts. Physical Examinations : Constitutional : Cooperative , not in acute distress . Neurologic : Cranial nerve II to XII intact. No focal neurological deficits. Psychiatric : alert & oriented x 3. Matching mood & appropriate affect. Judgment & insight intact. Musculoskeletal : Cervical Spine Motor strength in the deltoid and biceps: Normal right side. Normal Left side Motor strength biceps and the wrist extensors: Normal right side . Normal left side Motor strength in the triceps muscle: Normal right side. Normal left side Deep tendon reflexes: Normal at the biceps. Normal at Brachioradialis. Normal at triceps Vertebral body tenderness to deep palpation over Cervical facet loading test: positive bilaterally Spurling test: positive bilaterally Neck distraction test: positive heri aterally Rita sign: positive bilaterally Lumbar spine Motor strength lower extremities ,thigh and legs 5/5 Right side , 5/5 Left side Deep tendon reflexes : Normal Knee Jerk. Normal Ankle Jerk Vertebral body tenderness over Meyer Test positive Lumbar facet Loading Test: positive Right / positive Left L4-L5, L5-S1 Range of motion of the lumbar spine Flexion 30 degrees, extension 10 degrees Straight Leg Raise test: Left/ Right positive at degrees Monroe test: positive right / positive left. Severe tenderness over the Sacroiliac joint on the Right / Left sides Gaenslen test: positive bilaterally Seated flexion test: positive bilaterally. Sacral spine : Severe tenderness over the Sacroiliac joint: right side / left side Range of motion: Flexion of the lumbar spine <60 degrees Range of motion: Extension of the lumbar spine <20 degrees Gaenslen's Test positive Monroe test: positive right side / left side Thigh Thrust Test Sacral Thrust Test Imaging: MRI non contrast lumbar spine from 01/23/25 reviewed Assessment/ Plan : Lumbar facet arthropathy Recommendation of BL RFA L4-L5, L5-S1 and medication management. Risks, benefits of procedure discussed and patient verbalized understanding. Protocol for discontinuation/continuation of medications surrounding procedure discussed. Minimal anesthesia including Fentanyl and Versed if clinically indicated. Opiate/narcotic agreement signed 04/06/2025. Lutz 7.5/325 #90 w RF. UDS collected 04/06/25. Use, side effects, adverse reactions, safe storage discussed. All questions answered. I have spent greater than 30 minutes on patient care today. Dr Rincon was available by phone for the evaluation of this patient. The time was used to review the medical records including relevant urine studies and Prescription history (MAPs), review of the available imaging, evaluation and examination of the patient, coordination of care with the medical staff and if applicable referring physicians, as well as creation of the medical record - Pain Location Bilateral Lower Back Non-Pharmacological Interventions: Heat, Home Exercise, Ice, Inactivity, Physical Therapy, Position/Reposition, Relaxation Technique, Sitting, Standing, Stretching, TENS Unit Pharmacological Interventions: Epidural, PRN Medication, Topical Medication PQRS Narrative: Smoking Status Former smoker Hx Alcohol Use (MH) No Home Medications: Ambulatory Orders Aspirin 81 mg PO DAILY 12/28/14 metFORMIN HCL [Glucophage] 1,000 mg PO BID 12/28/14 Omeprazole 20 mg PO DAILY PRN 09/24/19 Cholecalciferol [Vitamin D3 (25 Mcg = 1000 Iu)] 50 mcg PO DAILY 10/25/20 Clindamycin Gel [Clindamycin Phosphate 1% Gel] 1 applic TOPICAL BID PRN 10/25/20 Empagliflozin [Jardiance] 25 mg PO DAILY 09/14/21 Semaglutide [Ozempic] 0.5 mg SQ MO 09/14/21 Albuterol Sulfate [Albuterol Sulfate Hfa] 2 puff PO RT-Q6H PRN 10/14/21 Carboxymethylcellulose Sodium [Refresh Tears] 1 drop BOTH EYES QID 10/14/21 Doxycycline Hyclate 100 mg PO BID 10/14/21 Sildenafil Citrate 100 mg PO DAILY PRN 10/14/21 Simvastatin [Zocor] 40 mg PO HS 10/14/21 traZODone HCL 200 mg PO HS 10/14/21 Cetirizine HCl [Zyrtec] 10 mg PO DAILY 07/14/22 Acetaminophen Tab [Tylenol] 650 mg PO Q6H #30 tab 07/19/22 Docusate [Colace] 100 mg PO BID #20 capsule 07/19/22 Ibuprofen [Motrin] 600 mg PO Q6HR PRN #40 tab 07/19/22 Metoprolol Succinate [Toprol XL] 50 mg PO BID 04/06/25 Controlled Substance Measures - Controlled Substance Measures Is patient prescribed a controlled substance at discharge?: Yes When asked, does pt state using other controlled substances?: No If prescribed controlled substance>3 days was MAPS reviewed?: Yes If Rx opioid, was Start Talking consent form obtained?: Yes Was information provided regarding opioid addiction?: Yes
== END ==
LOC: PNWHC3 12:50
PROVIDERS: ATTEND Specialist
DX: M47.26 Other spondylosis with radiculopathy, lumbar region (principal); Z88.8 Allergy status to other drugs, medicaments and biological substances; Z87.891 Personal history of nicotine dependence
CPT/HCPCS: 80307; 99212